=== PATIENT | male | born 1995 | race Caucasian/White ===

== ENCOUNTER 2022-01-11 08:22 | Outpatient (REF) | payer MEDICARE, MEDICAID, SELFPAY ==
[2022-01-11 08:48] LABS: MANUAL DIFF FLAG NO
[2022-01-11 09:07] LABS: Basophils Absolute Auto 0.1 X10*3/uL (0.0-0.2); Basophils Percent Auto 1.2 % (0-2); Eosinophils Absolute Auto 0.1 X10*3/uL (0.0-0.4); Eosinophils Percent Auto 1.4 % (0-4); Hematocrit 43.9 % (42.0-52.0); Hemoglobin 15.6 g/dl (14.0-18.0); Lymphocytes Absolute Auto 1.3 X10*3/uL (1.2-4.9); Lymphocytes Percent Auto 26.8 % (20-40); Mean Corpuscular HGB Conc 35.5 g/dl (31.0-36.0); Mean Corpuscular Hemoglobin 30.1 pg (27.0-33.0); Mean Corpuscular Volume 84.7 fL (80.0-98.0); Mean Platelet Volume 9.6 fL (9.4-12.4); Monocytes Absolute Auto 0.5 X10*3/uL (0.1-1.2); Monocytes Percent Auto 9.8 % (2-11); Neutrophils Percent Auto 60.8 % (45-73); Platelet Count 234 X10*3/uL (160-400); Red Blood Count 5.18 X10*6/uL (4.60-5.80); White Blood Count 4.9 X10*3/uL (4.8-10.8)
[2022-01-11 09:17] LABS: Appearance Urine CLEAR; Glucose Urine UA NEG (NEG); Leukocyte Esterase Urine NEG (NEG); Nitrite Urine NEG (NEG); Specific Gravity - Urine <= 1.005 (1.005-1.025); Urine Blood NEG (NEG); Urine Ketones NEG (NEG); Urine Protein NEG (NEG-TRACE)
[2022-01-11 09:19] LABS: Color Urine COLORLESS
[2022-01-11 09:38] LABS: Alanine Aminotransferase 16 U/L (0-40); Albumin Level 4.8 g/dL (3.5-5.0); Alkaline Phosphatase 64 U/L (39-117); Anion Gap 11 (12-20); Aspartate Amino Transferase 14 U/L (5-37); Bilirubin Total 0.9 mg/dL (0.0-1.0); Blood Urea Nitrogen 8 mg/dL (9-16); Carbon Dioxide 26 mmol/L (22-29); Chloride 107 mmol/L (96-108); Cholesterol 196 mg/dL; Estimated Glomerular Filt Rate > 60; Glucose Random 102 mg/dL (60-115); Sodium 140 mmol/L (135-145); Total Protein 7.5 g/dL (6.5-8.0)
[2022-01-11 09:52] LABS: TSH reflex Free T4 1.03 uIU/mL (0.32-4.0); Vitamin D 25-OH Total 32.8 ng/mL (>30)
== END 2022-01-11 08:23 | disposition home or self-care (01) ==
LOC: HO.LAB 08:22
PROVIDERS: PCP Internal Medicine; Visit Provider Internal Medicine
DX: Z00.00 Encounter for general adult medical examination without abnormal findings (principal); E55.9 Vitamin D deficiency, unspecified; R53.83 Other fatigue; Z83.49 Family history of other endocrine, nutritional and metabolic diseases
CPT/HCPCS: 36415; 80053; 81003; 82306; 82465; 84443; 85025

== ENCOUNTER 2022-04-08 11:09 | Outpatient (REF) | payer OTHER, SELFPAY ==
[2022-04-08 11:51] LABS: COVID-19 Test Positive (Negative)
== END 2022-04-08 11:10 | disposition home or self-care (01) ==
LOC: HO.LAB 11:09
PROVIDERS: Visit Provider Internal Medicine
DX: Z20.822 Contact with and (suspected) exposure to COVID-19 (principal)
CPT/HCPCS: 87635; C9803

== ENCOUNTER 2022-05-19 14:48 | Outpatient (REF) | payer OTHER, SELFPAY ==
--- NOTE | ~2022-05-19 | XR_ITS ---
EXAMINATION: XR SACROILIAC JOINTS CLINICAL INFORMATION: Sacrococcygeal disorders. COMPARISON: None TECHNIQUE: 3 views of the sacroiliac joints FINDINGS: Sacroiliac joints are symmetric. No significant sclerosis or discrete erosions. No displaced fractures. No significant soft tissue abnormality. XR/XR sacroiliac joint 1-2V IMPRESSION: Normal sacroiliac joints.
--- NOTE | ~2022-05-19 | XR_ITS ---
EXAMINATION: XR HIP, LEFT CLINICAL INFORMATION: Pain in the left hip. COMPARISON: None TECHNIQUE: Two views of the left hip. FINDINGS: No acute fracture or malalignment. Nonaggressive-appearing sclerotic lesions projecting over the left femoral neck, largest measuring 1.5 cm. No significant degenerative changes. Normal appearance of the soft tissues. XR/XR hip LT min 2V IMPRESSION: No acute fracture or subluxation. Nonaggressive-appearing sclerotic lesions in the proximal left femur are in favor to represent bone islands. Correlation with prior examinations would be helpful to ensure stability. Alternatively, further evaluation with a bone scan or an interval radiographic 6-12 months could be obtained if clinically deemed appropriate.
== END 2022-05-19 14:49 | disposition home or self-care (01) ==
LOC: HO.HMGCX 14:48
PROVIDERS: PCP Internal Medicine; Visit Provider Nurse Practitioner Family
DX: M25.552 Pain in left hip (principal); M53.3 Sacrococcygeal disorders, not elsewhere classified
CPT/HCPCS: 72200; 73502

== ENCOUNTER 2022-06-04 | Outpatient (REF) | payer OTHER, SELFPAY ==
--- NOTE | ~2022-06-04 | XR_ITS ---
EXAMINATION: XR KNEE, BILATERAL XR KNEE, RIGHT CLINICAL INFORMATION: Knee pain. COMPARISON: None TECHNIQUE: AP bilateral knee standing 1 view. Right knee 2 views. FINDINGS: AP BILATERAL KNEE STANDING: The medial and lateral compartment joint space both knees are maintained normal. No bony erosive changes, loose bodies or soft tissue swelling. Visualized distal femur, proximal tibia and fibula are unremarkable. RIGHT KNEE: Lateral and patellofemoral views reveal maintained normal joint space. No bony erosive changes. No loose body seen. No joint effusion. XR/XR knee standing BI IMPRESSION: Unremarkable AP bilateral knee exam standing. Unremarkable right knee exam.
--- NOTE | ~2022-06-04 | XR_ITS ---
EXAMINATION: XR KNEE, BILATERAL XR KNEE, RIGHT CLINICAL INFORMATION: Knee pain. COMPARISON: None TECHNIQUE: AP bilateral knee standing 1 view. Right knee 2 views. FINDINGS: AP BILATERAL KNEE STANDING: The medial and lateral compartment joint space both knees are maintained normal. No bony erosive changes, loose bodies or soft tissue swelling. Visualized distal femur, proximal tibia and fibula are unremarkable. RIGHT KNEE: Lateral and patellofemoral views reveal maintained normal joint space. No bony erosive changes. No loose body seen. No joint effusion. XR/XR knee RT 2V IMPRESSION: Unremarkable AP bilateral knee exam standing. Unremarkable right knee exam.
== END 2022-06-04 00:01 ==
LOC: HO.HOSX
PROVIDERS: Visit Provider Physician Assistant
DX: M25.561 Pain in right knee (principal); M12.20 Villonodular synovitis (pigmented), unspecified site; M25.552 Pain in left hip
CPT/HCPCS: 73560; 73565; 99202

== ENCOUNTER 2022-06-24 14:58 | Outpatient (REF) | payer OTHER, SELFPAY ==
--- NOTE | ~2022-06-24 | MR_ITS ---
EXAMINATION: MR KNEE WITHOUT CONTRAST, RIGHT CLINICAL INFORMATION: Pain, PVNS. COMPARISON: X-ray 06/04/2022. TECHNIQUE: MRI of the knee without contrast was performed using routine sequences on a high-field scanner. FINDINGS: MENISCI: Medial Meniscus: Intact. Lateral Meniscus: Intact. LIGAMENTS: Cruciate: Intact. Collateral: Intact. EXTENSOR MECHANISM: Intact. ARTICULAR CARTILAGE/BONE: No focal cartilage loss in 3 compartments. Marrow signal is within normal limits. No evidence of fracture. JOINT FLUID AND BURSAE: There is a soft tissue masslike focus posterior to the femur, adjacent to the medial gastrocnemius tendon. Measures 1.2 x 2.7 x 2.4 cm (AP, transverse, length). This focus is heterogeneous on T2, with mixed areas of bright T2, intermediate T1 signal, low on T1. Multiple additional foci with similar signal characteristics are seen along the posteromedial knee, posterior to the capsule, and tracking along the medial gastrocnemius muscle, could be located within a Valentin's cyst. For example series 5:3. Question subtle foci within the intercondylar region. Small joint fluid. MR/MR knee RT wo con IMPRESSION: 1. There is a 1.2 x 2.7 x 2.4 cm soft tissue mass posterior to the distal femur adjacent to the medial gastrocnemius tendon, with signal characteristics as detailed above. Multiple additional foci are seen along the posteromedial aspect of the knee/proximal calf, detailed above. 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 Differential considerations include PVNS, synovitis, neoplastic etiologies are not excluded. Recommend orthopedic consultation and management. Biopsy/soft tissue sampling can be obtained as clinically warranted. Ongoing clinical management and followup is recommended, with consideration for followup imaging for reassessment. 2. Menisci appear intact without discrete tear.
== END 2022-06-24 14:59 | disposition home or self-care (01) ==
LOC: HO.MRI 14:58
PROVIDERS: Visit Provider Physician Assistant
DX: M12.261 Villonodular synovitis (pigmented), right knee (principal); M25.561 Pain in right knee
CPT/HCPCS: 73721

== ENCOUNTER 2022-07-06 15:26 | Outpatient (REF) | payer OTHER, SELFPAY ==
--- NOTE | ~2022-07-06 | XR_ITS ---
EXAMINATION: XR KNEE, LEFT CLINICAL INFORMATION: Left knee pain COMPARISON: None TECHNIQUE: Four views of the left knee. FINDINGS: Bones and soft tissues are normal. No fracture or joint effusion. Alignment is anatomic. Joint spaces are well maintained. No abnormal soft tissue calcification. XR/XR knee LT 2V IMPRESSION: Normal left knee.
== END 2022-07-06 15:27 | disposition home or self-care (01) ==
LOC: HO.HOSX 15:26
PROVIDERS: Visit Provider Physician Assistant
DX: M25.561 Pain in right knee (principal); M25.552 Pain in left hip; M12.20 Villonodular synovitis (pigmented), unspecified site
CPT/HCPCS: 73560; 99212

== ENCOUNTER 2022-08-13 11:00 | Outpatient (REF) | payer OTHER, SELFPAY ==
--- NOTE | ~2022-08-13 | MR_ITS ---
EXAMINATION: MR HIP WITHOUT AND WITH CONTRAST, LEFT CLINICAL INFORMATION: Left hip pain. Intermittent. Difficulty with weightbearing. Disorder of bone. COMPARISON: Left hip radiographs dated 05/19/2022. TECHNIQUE: MRI of the left hip was performed before and after the intravenous administration of 5 mL Gadavist on a high-field scanner. FINDINGS: ACETABULAR LABRUM: No displaced several tear. ARTICULAR CARTILAGE/BONE: Low T1/low T2 foci within the femoral neck measuring 1.2 cm posteriorly and 0.3 cm anteriorly, corresponding to the prior radiographs and consistent with bone islands. No concerning lytic or blastic osseous lesion. No abnormal marrow enhancement. No stress reaction, fracture, or avascular necrosis. MUSCLES/TENDONS: Intact. JOINT FLUID/BURSA: Within normal limits. INTRAPELVIC STRUCTURES: Unremarkable. MR/MR hip LT wo/w con IMPRESSION: 1. No concerning lytic or blastic osseous lesion. Bone islands within the left femoral neck corresponding to the prior radiographs. 2. No displaced labral tear. 3. No stress reaction, fracture, or avascular necrosis.
== END 2022-08-13 11:01 | disposition home or self-care (01) ==
LOC: HO.MRI 11:00
PROVIDERS: Visit Provider Physician Assistant
DX: M89.9 Disorder of bone, unspecified (principal)
CPT/HCPCS: 73723; A9585

== ENCOUNTER → 2022-08-17 13:07 | Outpatient (BNVA) | payer OTHER, SELFPAY | PROVIDERS: PCP Internal Medicine; Visit Provider Physician Assistant | DX: M12.20 Villonodular synovitis (pigmented), unspecified site (principal) | CPT/HCPCS: 99212 ==

== ENCOUNTER → 2022-09-27 08:47 | Outpatient (BNVA) | payer OTHER, SELFPAY | PROVIDERS: PCP Internal Medicine; Visit Provider Anesthesiology | DX: M12.20 Villonodular synovitis (pigmented), unspecified site (principal); M70.62 Trochanteric bursitis, left hip; M76.32 Iliotibial band syndrome, left leg | CPT/HCPCS: 99202 ==

== ENCOUNTER 2022-11-01 15:00 | Outpatient (RCR) | payer OTHER, SELFPAY ==
--- NOTE | 2022-09-06 17:17 | MHC.PT.EP ---
[facility] [place] Office [place] Office [place] Office [address] [phone] F: [phone] F: [phone] F: [phone] F: [phone] Physical Therapy Plan of Care Date of Evaluation: Date of Surgery: Diagnosis: L hip pain, lesion of L femur Assessment: Patient is a 27 y.o. male who is referred to PT by Bambi Enrique PA-C with Dx of L hip pain with lesion of L femur with PMHx of pigmented villonodular synovitis (PVNS). Patient impairments include pain with prolonged WBing, weakness in hips and knees, impaired balance. Patient current functional limitations are getting on/off low surface, ambulating longer distances, stair use, showering (prolonged standing), rolling onto L hip while sleeping. Patient will benefit from skilled PT to address aforementioned impairments and functional limitations to meet established goals. Frequency and Duration: The patient will be seen 1-2x/week for 4 weeks Short Term Goals: 2 weeks Patient demonstrates consistency and independence with HEP to self manage symptoms. Patient reports 2/10 pain when rolling/lying on L hip with sleeping. 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 Patient presents with increased L hip glute med strength 4/5 to be able to perform sit/stand without difficulty and good eccentric control. Treatment Plan: Modalities to reduce pain, spasms and effusion. Manual therapy to restore motion and function. Therapeutic exercise to improve strength and flexibility. Neuromuscular re-education for posture and balance. Therapeutic activities to return to functional activities of daily living. Electronically signed by: Karolina Parrish, PT, DPT Please sign and return to therapist. Thank you for your referral.
--- NOTE | 2022-11-02 10:47 | MHC.PT.DC ---
[facility] [place] Office [place] Office [place] Office [address] Jose Simeon [address] [phone] F: [phone] F: [phone] F: [phone] F: [phone] Physical Therapy Discharge Report Diagnosis: L hip pain, lesion of L femur Date of Surgery: Date of Evaluation: 09/06/22 Date of Discharge: 11/01/22 Treatments to Date: 8 Cancellations to Date: No Shows to Date: Discharge Status: Achieved Goals Improved Function Independent with HEP Discharge Summary: Patient has met goals for L hip strength and presents with reduced pain and improved LEFI score from initial evaluation. 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 We discuss needing to continue with working on strength and endurance at home for long distance ambulation. He agreed to discharge at this time. Electronically signed by: Karolina Parrish, PT, DPT Please sign and return to therapist. Thank you for your referral.
== END 2022-11-02 10:48 | disposition home or self-care (01) ==
LOC: HO.PT 15:00
PROVIDERS: PCP Internal Medicine; Visit Provider Physician Assistant
DX: M89.9 Disorder of bone, unspecified (principal)
CPT/HCPCS: 97110; 97112; 97161; 97530

== ENCOUNTER 2023-01-07 09:33 | Outpatient (REF) | payer OTHER, SELFPAY ==
[2023-01-07 10:02] LABS: MANUAL DIFF FLAG NO
[2023-01-07 10:30] LABS: Basophils Absolute Auto 0.1 X10*3/uL (0.0-0.2); Basophils Percent Auto 1.4 % (0-2); Eosinophils Absolute Auto 0.1 X10*3/uL (0.0-0.4); Eosinophils Percent Auto 2.3 % (0-4); Hemoglobin 15.5 g/dl (14.0-18.0); Imm Gran Abs Auto 0.01 X10*3/uL (0.00-0.03); Imm Gran Pct Auto 0.2 % (0.0-0.4); Lymphocytes Absolute Auto 1.5 X10*3/uL (1.2-4.9); Lymphocytes Percent Auto 33.1 % (20-40); Mean Corpuscular HGB Conc 35.2 g/dl (31.0-36.0); Mean Corpuscular Hemoglobin 30.7 pg (27.0-33.0); Mean Corpuscular Volume 87.1 fL (80.0-98.0); Mean Platelet Volume 9.6 fL (9.4-12.4); Monocytes Absolute Auto 0.4 X10*3/uL (0.1-1.2); Neutrophils Absolute Auto 2.3 x10*3/uL (2.0-8.3); Platelet Count 223 X10*3/uL (160-400); Red Blood Count 5.05 X10*6/uL (4.60-5.80); Red Cell Distribution Width 11.8 % (11.0-16.0); White Blood Count 4.4 X10*3/uL (4.8-10.8)
[2023-01-07 11:08] LABS: Alanine Aminotransferase 14 U/L (0-40); Alkaline Phosphatase 63 U/L (39-117); Anion Gap 10 (12-20); Aspartate Amino Transferase 19 U/L (5-37); Bilirubin Total 1.1 mg/dL (0.0-1.0); Blood Urea Nitrogen 10 mg/dL (9-16); Calcium 9.9 mg/dL (8.4-10.2); Carbon Dioxide 28 mmol/L (22-29); Chloride 107 mmol/L (96-108); Cholesterol 200 mg/dL; Estimated Glomerular Filt Rate > 60; Glucose Random 92 mg/dL (60-115); Potassium 4.3 mmol/L (3.3-5.1); Sodium 141 mmol/L (135-145); Total Protein 7.2 g/dL (6.5-8.0)
[2023-01-07 11:10] LABS: Appearance Urine Clear; Color Urine Yellow; Glucose Urine UA Negative (Negative); Leukocyte Esterase Urine Negative (Negative); Nitrite Urine Negative (Negative); Urine Blood Negative (Negative); Urine Ketones Negative (Negative); Urine Protein Negative (Neg-Trace)
[2023-01-07 11:14] LABS: Vitamin D 25-OH Total 37.2 ng/mL (>30)
== END 2023-01-07 09:34 | disposition home or self-care (01) ==
LOC: HO.LAB 09:33
PROVIDERS: PCP Internal Medicine; Visit Provider Internal Medicine
DX: Z00.00 Encounter for general adult medical examination without abnormal findings (principal); M12.20 Villonodular synovitis (pigmented), unspecified site; R63.6 Underweight; R30.0 Dysuria; E55.9 Vitamin D deficiency, unspecified; F94.0 Selective mutism; E78.00 Pure hypercholesterolemia, unspecified
CPT/HCPCS: 36415; 80053; 81003; 82306; 82465; 84443; 85025

== ENCOUNTER 2023-04-25 10:53 | Outpatient (AMB) | payer OTHER, SELFPAY ==
--- NOTE | 2023-04-25 10:55 | MHC.OFFWIV ---
Intake Vital Signs 04/25/23 10:56 Weight 103 lb BP 100/60 Blood Pressure Location Rt brachial Position Sitting Pulse 108 H Pulse Source Pulse Oximeter Temp 97.9 F Temp Source Temporal Artery Scan Pulse Oximetry (%) 99 Oxygen Delivery Method Room Air Intake Visit Reasons: EP ?Mole on lower AB/concerned Intake Note: Patient here for mole on lower abdomen, he states it seems like it has changed in the past week and is concerned. mola is raised and scally. Patient Tobacco Use Status: Never used Tobacco Allergies No Known Allergies Allergy (Verified 04/25/23 10:57) Do you need a note to return to daycare/school/sports/work: No HPI EP ?Mole on lower AB/concerned HPI Details 28-year-old male presents to the office for a sick visit. Patient cannot recall for how long he has had the mold. It is in the suprapubic area and over the past month had grown in size. No bleeding from the lesion. 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 Synovial cyst of right knee Surgical History H/O right knee surgery Family History Mother High cholesterol Father High blood pressure Other Mental health problem Social History Housing: Condominium Alcohol intake: never Patient Tobacco Use Status: Never used Tobacco e-Cigarette/Vaping Use: Never Used Second Hand Smoke Exposure: No service: No Current occupational status: disabled Cognitive needs: No Hearing needs: No Vision needs: Yes Physical Exam Vital Signs: Last Vital Signs Temp 97.9 F 04/25/23 10:56 Pulse 108 H 04/25/23 10:56 BP 100/60 04/25/23 10:56 Pulse Ox 99 04/25/23 10:56 Oxygen Delivery Method Room Air 04/25/23 10:56 Skin Other: Suprapubic area, blackish nevus 2 centimetres in diameter, irregular border. Assessment & Plan Assessment & Plan (1) Nevus: Code(s): D22.9 - Melanocytic nevi, unspecified Plan: The lesion warrants a biopsy. A message has been sent to the PCP if they would order a dermatology consult. Pt was informed of the same. Coding Level of Care Code Est Pt Level 3 (07193) Diagnoses Nevus D22.9
[2023-04-25 10:56] VITALS: BP 100/60; PULSE 108; TEMP 36.6; O2SAT 99
== END 2023-04-25 12:03 | disposition home or self-care (01) ==
PROVIDERS: PCP Internal Medicine; Visit Provider Internal Medicine
DX: D22.9 Melanocytic nevi, unspecified (principal)
CPT/HCPCS: 99213

== ENCOUNTER 2023-06-02 16:03 | Outpatient (AMB) | payer OTHER, SELFPAY ==
[2023-06-02 16:23] VITALS: BP 100/66; PULSE 86; O2SAT 99; BMI 17.3
--- NOTE | 2023-06-02 16:23 | MHC.PC.OV ---
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: No Allergies No Known Allergies Allergy (Verified 06/02/23 16:38) Medication List - Last Reconciled 06/02/23 by CLARISSA Lloyd omeprazole 20 mg PO DAILY Tobacco use date assessed: 06/02/23 Dental Screening Dental Screen Date: 06/02/23 Did you have a dental visit in the last 12 months?: Yes Did you have a dental problem in the last 6 months where you did not have access to dental care?: No Was dental information given to patient?: Patient has dentist HPI discuss acid reflux, problem swallowing food HPI Details Patient is a 28-year-old male who presents today for the same day visit due to acid reflux for long time now. Patient of Dr. Willett. Patient reports taking omeprazole for 14 days and he has stop taking that couple days ago, reports mild improvement in acid reflux although still with difficulty swallowing hard foods. He reports difficulty swallowing hard foods for the past couple months. No problems swallowing liquids. Denies nausea, vomiting, abdominal pain, diarrhea/constipation. Blood work couple months ago normal including thyroid. 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 How often do you have a drink containing alcohol?: Never 3. How often do you have six or more drinks on one occasion?: Never Total Score: 0 Score Reviewed/Action Taken: No YAHIR-7 AMB Questionnaire YAHIR-7 Date YAHIR - 7 assessed: 01/07/23 Source: Developed by Drs. Juanito Mederos, Dania Anglin, Josias Melara and colleagues, with an educational veronica from [employer]. Review of Systems Const Denies body aches, Denies chills, Denies fever(s) and Denies headache(s) ENT Reports dysphagia, Denies dizziness, Denies otalgia, Denies headache(s), Denies nasal discharge, Denies sinus pain and Denies sore throat Card Denies chest pain, Denies edema, Denies lightheadedness and Denies dyspnea Resp Denies cough, Denies dyspnea and Denies wheezing GI Denies abdominal pain, Denies constipation, Reports dysphagia, Reports heartburn, Denies diarrhea, Denies nausea and Denies vomiting Denies dysuria Musc Denies myalgias Skin/Breast Denies rash Neuro Denies dizziness and Denies headache(s) Aller/Immun Denies wheezing Physical exam (Primary Care) Vital Signs: Last Vital Signs Pulse 86 06/02/23 16:23 BP 100/66 06/02/23 16:23 Pulse Ox 99 06/02/23 16:23 Oxygen Delivery Method Room Air 06/02/23 16:23 BMI result Body Mass Index 17.3 Tobacco/Smoking Status: Tobacco use Status Tobacco use date assessed 06/02/23 06/02/23 16:23 Patient Tobacco Use Status Never used Tobacco 06/02/23 16:23 e-Cigarette/Vaping Use Never Used 06/02/23 16:23 Thrive Assessment: Date of Thrive Assessment Date Thrive assessed 01/07/23 06/02/23 16:23 Const General: cooperative and no acute distress Orientation/consciousness: patient oriented x3 HENMT Head: Yes normocephalic and Yes atraumatic Mouth: oropharynx normal and moist mucous membranes Throat: Yes posterior oropharynx normal Eyes General: appearance normal, both eyes and all related structures Neck Neck: Yes normal visual inspection, Yes full ROM and Yes no lymphadenopathy Thyroid: Thyroid normal Resp Effort & Inspection: normal respiratory effort and able to speak in complete sentences Auscultation: clear to auscultation bilaterally, no crackles, no rales, no rhonchi and no wheezes Cardio Rate: regular rate Rhythm: regular rhythm Heart sounds: S1 normal heart sound present and S2 normal heart sound present GI Palpation (GI): Soft to palpation, not firm, nontender, no guarding, not rigid and no hepatosplenomegaly Auscultation: normal bowel sounds Skin General skin exam: no rashes or lesions noted Neuro General: patient oriented x3 Gait exam (Neuro): Normal gait present Extrem General: Yes full ROM and No edema Assessment and Plan Assessment & Plan (1) Difficulty swallowing: Code(s): R13.10 - Dysphagia, unspecified Plan: Physical exam with no acute findings Upper GI study ordered (2) GERD (gastroesophageal reflux disease): Code(s): K21.9 - Gastro-esophageal reflux disease without esophagitis Plan: Restart omeprazole 20 mg daily for 4 weeks Avoid GERD trigger foods Do not lay down 2-3 hours after evening meal Follow-up in 1 month Patient agreed with the plan Orders: Orders FL upper GI w Ba Swallow Today K21.9 - Gastro-esophageal reflux disease without esophagitis, R13.10 - Dysphagia, unspecified Medications: New omeprazole 20 mg PO DAILY 30 caps 0RF K21.9 - Gastro-esophageal reflux disease without esophagitis Coding Level of Care Code Est Pt Level 3 (58841) Diagnoses Difficulty swallowing R13.10 GERD (gastroesophageal reflux disease) K21.9
== END 2023-06-02 16:51 | disposition home or self-care (01) ==
PROVIDERS: PCP Internal Medicine; Visit Provider Nurse Practitioner Family
DX: R13.10 Dysphagia, unspecified (principal); K21.9 Gastro-esophageal reflux disease without esophagitis
CPT/HCPCS: 99213

== ENCOUNTER 2023-07-04 14:18 | Outpatient (AMB) | payer OTHER, SELFPAY ==
[2023-07-04 14:24] VITALS: BP 130/78; PULSE 60; BMI 17.8
--- NOTE | 2023-07-04 14:24 | MHC.PC.OV ---
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: Present Allergies No Known Allergies Allergy (Verified 07/04/23 18:14) Medication List - Last Reconciled 07/04/23 by Wolf Willett MD omeprazole 20 mg PO DAILY Tobacco use date assessed: 06/02/23 Dental Screening Dental Screen Date: 07/04/23 Did you have a dental visit in the last 12 months?: Yes Did you have a dental problem in the last 6 months where you did not have access to dental care?: No Was dental information given to patient?: Patient has dentist HPI F/u on GERD HPI Details Patient comes in today for his follow up visit Relates that he started having some difficulty swallowing his food when he eats a few months ago; has had no trouble with liquids Was seen by SUPERVISOR BODY ASSEMBLY last month for this and was he started back on Omeprazole 20 mg QD, which he states was helping with his symptoms until he ran out of his Rx States that his dysphagia has improved a lot on Rx but still has not cleared up completely He was referred for a barium swallow for further evaluation and he is scheduled to have this done next month on 08/18/2023 States that he feels okay otherwise Denies any headaches or dizziness Denies any sore throat Denies any chest pains, no SOB No nausea/vomiting, no abdominal pain No change in bowel habits noted PFSH Medical History Synovial cyst of right knee 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 1. Little interest or pleasure in doing things: not at all 2. Feeling down, depressed, or hopeless: not at all 3. Trouble falling or staying asleep, or sleeping too much: not at all 4. Feeling tired or having little energy: not at all 5. Poor appetite or overeating: not at all 6. Feeling bad about yourself - or that you are a failure or have let yourself or your family down: not at all 7. Trouble concentrating on things, such as reading the newspaper or watching television: not at all 8. Moving or speaking so slowly that other people could have noticed. Or the opposite - being so fidgety or restless that you have been moving around a lot more than usual: not at all 9. Thoughts that you would be better off or of hurting yourself in some way: not at all Total score: 0 Depression Screening Interpretation: Negative Depression Screening Done: Yes 94816 - PHQ-9 Billing: Yes Source: Developed by Drs. Juanito Mederos, Dania Anglin, Josias Melara and colleagues, with an educational veronica from [employer]. Thrive Questionnaire Date Thrive assessed: 01/07/23 Currently or been in a relationship where the following occur: no concerns reported AUDIT C Alcohol Use Questionnaire (AUDIT-C) 1. How often do you have a drink containing alcohol?: Never 3. How often do you have six or more drinks on one occasion?: Never Total Score: 0 Score Reviewed/Action Taken: Yes YAHIR-7 AMB Questionnaire YAHIR-7 Date YAHIR - 7 assessed: 01/07/23 Source: Developed by Drs. Juanito Mederos, Dania Anglin, Josias Melara and colleagues, with an educational veronica from [employer]. Review of Systems Const Denies fatigue, Denies fever(s) and Denies headache(s) ENT Reports dysphagia (only to solids), Denies dizziness, Denies headache(s), Denies odynophagia and Denies sore throat Card Denies chest pain, Denies palpitations and Denies dyspnea Resp Denies cough and Denies dyspnea GI Denies abdominal pain, Denies constipation, Reports dysphagia (only to solids), Reports heartburn (occasional), Denies diarrhea, Denies nausea, Denies odynophagia and Denies vomiting Denies dysuria and Denies urinary frequency Musc Denies back pain Skin/Breast Denies rash Neuro Denies dizziness and Denies headache(s) Psych Reports anxiety Endo Denies fatigue and Denies palpitations Physical exam (Primary Care) Vital Signs: Last Vital Signs Pulse 60 07/04/23 14:24 BP 130/78 07/04/23 14:24 Oxygen Delivery Method Room Air 07/04/23 14:24 BMI result Body Mass Index 17.8 Tobacco/Smoking Status: Tobacco use Status Tobacco use date assessed 06/02/23 07/04/23 14:27 Patient Tobacco Use Status Never used Tobacco 07/04/23 14:27 e-Cigarette/Vaping Use Never Used 07/04/23 14:27 PHQ-9: PHQ-9 Score PHQ-9: Total score 0 07/04/23 14:46 Depression Screening Interpretation: Negative Thrive Assessment: Date of Thrive Assessment Date Thrive assessed 01/07/23 07/04/23 14:27 Currently or been in a relationship where the following occur: no concerns reported Const General: no acute distress and alert HENMT Mouth: Normal oral and palatal mucosa present Throat: Yes posterior oropharynx normal and Yes tonsils normal Neck Neck: Yes no lymphadenopathy and Yes supple Resp Auscultation: clear to auscultation bilaterally, no rales and no wheezes Cardio Rate: regular rate Rhythm: regular rhythm Heart sounds: no murmurs GI Palpation (GI): Soft to palpation and nontender Auscultation: normal bowel sounds Skin Rashes: no rashes Extrem General: Yes no clubbing, cyanosis or edema Assessment and Plan Assessment & Plan (1) Dysphagia: Code(s): R13.10 - Dysphagia, unspecified Qualifiers: Dysphagia type: unspecified Qualified Code(s): R13.10 - Dysphagia, unspecified Plan: Likely related to his GERD Patient states that his symptoms have improved somewhat with Omeprazole - to continue on Omeprazole 20 mg QD (Rx refilled) Dietary restrictions reinforced He is scheduled to have a barium swallow done next month on 08/18/2023 for further evaluation Plan Follow up in 2 months (after his barium swallow is done) Medications: Refilled omeprazole 20 mg PO DAILY 30 caps 2RF K21.9 - Gastro-esophageal reflux disease without esophagitis Coding Level of Care Code Est Pt Level 3 (09144) Diagnoses Dysphagia, unspecified type R13.10 Dysphagia type: unspecified
== END 2023-07-04 14:48 | disposition home or self-care (01) ==
PROVIDERS: PCP Internal Medicine; Visit Provider Internal Medicine
DX: R13.10 Dysphagia, unspecified (principal)
CPT/HCPCS: 99213

== ENCOUNTER 2023-08-18 09:13 | Outpatient (REF) | payer OTHER, SELFPAY ==
--- NOTE | ~2023-08-18 | FL_ITS ---
EXAMINATION: XR FLUOROSCOPY UPPER GI WITH AIR CLINICAL INFORMATION: Dysphagia, epigastric pain reflux COMPARISON: None TECHNIQUE: Fluoroscopic air contrast upper GI examination was performed utilizing standard techniques with thin and thick barium and effervescent granules. Numerous spot images were obtained. FINDINGS: Lateral cine images of the oropharynx and hypopharynx demonstrate normal swallow mechanism with normal epiglottic inversion and soft palate elevation. No tracheal penetration, glottic or subglottic aspiration identified. No nasopharyngeal reflux present. Hypopharyngeal structures appear normal without evidence of mass or diverticulum. There was no significant cricopharyngeal achalasia. Dual and single contrast images of the esophagus demonstrate normal caliber, contour, and mucosal pattern. Some granule artifact in the esophagus clears eventually. No evidence of stricture, mass, or ulcerations identified. Esophageal peristalsis was normal. A small type I hiatal hernia is present. Gastroesophageal reflux is seen up to the thoracic inlet. Dual contrast and single contrast images of the stomach demonstrated normal contour without evidence of mass, or ulceration. Gastric mucosal folds and mucosal markings appear normal.. Contrast freely passed into the gastric antrum and duodenal bulb without delay. Single and air-contrast images of the duodenal bulb demonstrate no abnormality. The duodenal sweep has a normal appearance, course, and mucosal fold appearance. The imaged proximal jejunum has a normal fold pattern and caliber. FLUOROSCOPY TIME: 3 minutes 5 seconds Number of Spot Images: 11 Number of Cine: 11 DOSE AREA PRODUCT: 1035 uGy-m2 (microgray-meter squared) FL/FL upper GI w Ba Swallow IMPRESSION: 1. Small type I hiatal hernia 2. Significant gastroesophageal reflux 3. Essentially normal stomach, duodenal bulb and sweep. This procedure was performed by Johan Covington PA-C, and supervised by Dr. Hogue
== END 2023-08-18 09:14 | disposition home or self-care (01) ==
LOC: HO.XRAY 09:13
PROVIDERS: PCP Internal Medicine; Visit Provider Nurse Practitioner Family
DX: R13.10 Dysphagia, unspecified (principal); K21.9 Gastro-esophageal reflux disease without esophagitis
CPT/HCPCS: 74240

== ENCOUNTER → 2023-08-18 09:15 | Outpatient (BNV) | payer OTHER, SELFPAY | PROVIDERS: PCP Internal Medicine; Visit Provider Radiology Diagnostic Radiology | DX: R13.10 Dysphagia, unspecified (principal) | CPT/HCPCS: 74246 ==

== ENCOUNTER 2023-09-12 13:03 | Outpatient (AMB) | payer OTHER, SELFPAY ==
[2023-09-12 13:04] VITALS: BP 100/70; PULSE 62; O2SAT 99; BMI 17.6
--- NOTE | 2023-09-12 13:04 | MHC.PC.OV ---
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 Required: No Accompanied by: Self / Same As Patient Allergies No Known Allergies Allergy (Verified 09/12/23 13:39) Medication List - Last Reconciled 09/12/23 by Wolf Willett MD omeprazole 20 mg PO DAILY Tobacco use date assessed: 09/12/23 Dental Screening Dental Screen Date: 09/12/23 Did you have a dental visit in the last 12 months?: Yes Did you have a dental problem in the last 6 months where you did not have access to dental care?: No Was dental information given to patient?: Patient has dentist HPI dysphagia - to discuss findings of barium swallow HPI Details Patient comes in today for his follow up visit States that he is still experiencing some difficulty swallowing that involves mostly solid foods Is also still experiencing recurrent heartburns although he states that his Omeprazole Rx has helped somewhat with his symptoms when he was first started on it a few months ago Had an upper GI series done about 3 weeks ago and would like to know how his test came out He denies any headaches or dizziness Denies any chest pains, no SOB No nausea/vomiting, no abdominal pain No change in bowel habits noted [facility] Medical History Synovial cyst of right knee 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 1. Little interest or pleasure in doing things: not at all 2. Feeling down, depressed, or hopeless: not at all 3. Trouble falling or staying asleep, or sleeping too much: not at all 4. Feeling tired or having little energy: not at all 5. Poor appetite or overeating: not at all 6. Feeling bad about yourself - or that you are a failure or have let yourself or your family down: not at all 7. Trouble concentrating on things, such as reading the newspaper or watching television: not at all 8. Moving or speaking so slowly that other people could have noticed. Or the opposite - being so fidgety or restless that you have been moving around a lot more than usual: not at all 9. Thoughts that you would be better off or of hurting yourself in some way: not at all Total score: 0 Depression Screening Interpretation: Negative Depression Screening Done: Yes 66840 - PHQ-9 Billing: Yes Source: Developed by Drs. Juanito Mederos, Dania Anglin, Josias Melara and colleagues, with an educational veronica from [employer]. Thrive Questionnaire Date Thrive assessed: 09/12/23 I am a: Patient What is your living situation today?: I have a steady place to live Within the past 12 months, did the food you bought not last and you didn't have the money to get more?: Never true Within the past 12 months, did you worry whether your food would run out before you got money to buy more?: Never true Do you have trouble paying for medicines?: No Do you have trouble getting transportation to medical appointments?: No Do you have trouble paying your heating and electricity bill?: No Do you have trouble taking care of your child, family member or friend?: No Do you have trouble with day-to-day activities such as bathing, preparing meals, shopping, managing finances, etc.?: No Are you currently unemployed and looking for a job?: No Are you interested in more education?: No Please select the resources that you would like help with: None Currently or been in a relationship where the following occur: no concerns reported AUDIT C Alcohol Use Questionnaire (AUDIT-C) 1. How often do you have a drink containing alcohol?: Never 3. How often do you have six or more drinks on one occasion?: Never Total Score: 0 Score Reviewed/Action Taken: Yes YAHIR-7 AMB Questionnaire YAHIR-7 Date YAHIR - 7 assessed: 09/12/23 Feeling nervous, anxious, or on edge: 0 = Not at all Not being able to stop or control worryin = Not at all Worrying too much about different things: 0 = Not at all Trouble relaxin = Not at all Being so restless that it is hard to sit still: 0 = Not at all Becoming easily annoyed or irritable: 0 = Not at all Feeling afraid as if something awful might happen: 0 = Not at all Total YAHIR-7 score (0-4 normal; 5-9 mild; 10-14 moderate; 15-21 severe): 0 Source: Developed by Drs. Juanito Mederos, Dania Anglin, Josias Melara and colleagues, with an educational veronica from [employer]. Review of Systems Const Denies chills, Denies fatigue, Denies fever(s) and Denies headache(s) ENT Reports dysphagia (only to solids), Denies dizziness, Denies otalgia, Denies headache(s), Denies neck pain, Denies odynophagia and Denies sore throat Card Denies chest pain, Denies palpitations and Denies dyspnea Resp Denies cough and Denies dyspnea GI Denies abdominal pain, Denies constipation, Reports dysphagia (only to solids), Reports heartburn (occasional), Denies diarrhea, Denies nausea, Denies odynophagia and Denies vomiting Denies dysuria and Denies urinary frequency Musc Denies back pain and Denies neck pain Skin/Breast Denies rash Neuro Denies dizziness and Denies headache(s) Psych Reports anxiety Endo Denies fatigue and Denies palpitations Physical exam (Primary Care) Vital Signs: Last Vital Signs Pulse 62 09/12/23 13:04 BP 100/70 09/12/23 13:04 Pulse Ox 99 09/12/23 13:04 Oxygen Delivery Method Room Air 09/12/23 13:04 BMI result Body Mass Index 17.6 Tobacco/Smoking Status: Tobacco use Status Tobacco use date assessed 09/12/23 09/12/23 13:11 Patient Tobacco Use Status Never used Tobacco 09/12/23 13:11 e-Cigarette/Vaping Use Never Used 09/12/23 13:11 PHQ-9: PHQ-9 Score PHQ-9: Total score 0 09/12/23 13:11 Depression Screening Interpretation: Negative Thrive Assessment: Date of Thrive Assessment Date Thrive assessed 09/12/23 09/12/23 13:11 Currently or been in a relationship where the following occur: no concerns reported Const General: no acute distress and alert HENMT Ears: TM's normal bilaterally and EAC's normal Throat: Yes posterior oropharynx normal and Yes tonsils normal Neck Neck: Yes no lymphadenopathy and Yes supple Resp Auscultation: clear to auscultation bilaterally, no rales and no wheezes Cardio Rate: regular rate Rhythm: regular rhythm Heart sounds: no murmurs GI Palpation (GI): Soft to palpation and nontender Auscultation: normal bowel sounds Skin Rashes: no rashes Extrem General: Yes no clubbing, cyanosis or edema Assessment and Plan Assessment & Plan (1) Dysphagia: Code(s): R13.10 - Dysphagia, unspecified Qualifiers: Dysphagia type: unspecified Qualified Code(s): R13.10 - Dysphagia, unspecified Plan: Is most likely related to his GERD Patient states that his symptoms have improved only partially with Omeprazole recently - will increase his Omeprazole to 20 mg 2 capsules QD (Rx refilled) Dietary restrictions reinforced Barium swallow done last month on 08/18/2023 revealed (+) type 1 sliding hiatal hernia with significant GERD up to the level of the thoracic inlet Due to the persistence of his symptoms despite PPI therapy and the findings on his recent upper GI series, will refer him to GI for further evaluation and management (2) PVNS (pigmented villonodular synovitis): Code(s): M12.20 - Villonodular synovitis (pigmented), unspecified site Plan: S/P knee arthroplasty at [facility] back in 2015 Follow up with orthopedics as scheduled - he is now also seeing a specialist for his knee at [facility] (3) 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 Plan: Follow up with psychiatry as scheduled Plan To return as scheduled in December 2023 for his next annual physical examination Orders: Referrals Gastroenterology Referral K21.9 - Gastro-esophageal reflux disease without esophagitis, R13.10 - Dysphagia, unspecified Medications: Changed From omeprazole 20 mg PO DAILY 30 caps 2RF K21.9 - Gastro-esophageal reflux disease without esophagitis To omeprazole 40 mg (2 x 20 mg) PO DAILY 30 days 60 caps 3RF K21.9 - Gastro-esophageal reflux disease without esophagitis Coding Level of Care Code Est Pt Level 3 (68370) Diagnoses Dysphagia, unspecified type R13.10 Dysphagia type: unspecified PVNS (pigmented villonodular synovitis) M12.20 Selective mutism F94.0
== END 2023-09-12 13:50 | disposition home or self-care (01) ==
PROVIDERS: PCP Internal Medicine; Visit Provider Internal Medicine
DX: R13.10 Dysphagia, unspecified (principal); M12.20 Villonodular synovitis (pigmented), unspecified site; F94.0 Selective mutism
CPT/HCPCS: 99213

== ENCOUNTER 2023-11-21 09:56 | Outpatient (AMB) | payer OTHER, SELFPAY ==
--- NOTE | 2023-11-21 09:58 | MHC.OFFVIS ---
Intake Vital Signs 11/21/23 09:59 Height 5 ft 5 in Weight 110 lb 10.753 oz BMI 18.4 BP 105/62 Blood Pressure Location Rt brachial Position Sitting Pulse 69 Intake Visit Reasons: Dysphagia and GERD Intake Note: Mack presents in office today as a new patient for dysphagia and GERD. CC: Patient c/o chocking with solid foods for several months and acid reflux for years. Denies other GI symptoms today. 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 Surgical History H/O right knee surgery Family History Mother High cholesterol Father High blood pressure Other Mental health problem Social History Housing: Condominium Alcohol intake: never Patient Tobacco Use Status: Never used Tobacco e-Cigarette/Vaping Use: Never Used Second Hand Smoke Exposure: No service: No Current occupational status: disabled Cognitive needs: No Hearing needs: No Vision needs: Yes Review of Systems Const All systems reviewed & are unremarkable except as noted in HPI and below ENT Reports dysphagia Card Denies chest pain and Denies dyspnea Resp Denies dyspnea GI Denies abdominal pain, Reports dysphagia, Reports heartburn, Denies nausea and Denies vomiting Physical Exam Vital Signs: Last Vital Signs Pulse 69 11/21/23 09:59 BP 105/62 11/21/23 09:59 BMI result Body Mass Index 18.4 Const General: cooperative and comfortable Orientation/consciousness: patient oriented x3 Limitations: no limitations Eyes Sclerae: sclerae normal Resp Effort & Inspection: normal respiratory effort and able to speak in complete sentences Auscultation: clear to auscultation bilaterally, no rales, no rhonchi and no wheezes Cardio Rate: regular rate Rhythm: regular rhythm Heart sounds: S1 normal heart sound present and S2 normal heart sound present GI Palpation (GI): Soft to palpation and nontender Auscultation: normal bowel sounds Skin General skin exam: no rashes or lesions noted Neuro General: patient oriented x3 Extrem General: Yes full ROM Psych Speech and movement: Clear speech present Affect: Anxious affect present Attitude: cooperative Thought process: Normal thought process present Thought content: Normal thought content present Results Reviewed Results Reviewed: 08/18/23- FL/FL upper GI w Ba Swallow IMPRESSION: 1. Small type I hiatal hernia 2. Significant gastroesophageal reflux 3. Essentially normal stomach, duodenal bulb and sweep. Assessment & Plan Assessment & Plan (1) Dysphagia: Comment: Dysphagia versus globus-anxiety Code(s): R13.10 - Dysphagia, unspecified Qualifiers: Dysphagia type: unspecified Qualified Code(s): R13.10 - Dysphagia, unspecified Plan: Reviewed barium swallow (2) GERD (gastroesophageal reflux disease): Code(s): K21.9 - Gastro-esophageal reflux disease without esophagitis Plan: Reflux precautions Omit culprits H pylori UBT Plan Reflux precautions d/c omeprazole x2 wks carafate in the interim- HP UBT- if pos tx if neg reassess consider EGD- Orders: Orders H Pylori Breath Test 2 Weeks A04.8 - Other specified bacterial intestinal infections Medications: New sucralfate 1 g (10 mL) PO QIDACHS 420 mL 0RF 4 weeks Patient Instructions: Reflux precautions reviewed Reviewed barium swallow Continue to avoid culprits Discontinue omeprazole for 2 weeks H pylori breath test scheduled-must arrive NPO x1 If H pylori positive will treat with course of antibiotic If H pylori negative switch PPI Encouraged to call questions or concerns Coding Level of Care Code New Pt Level 3 (68055) Diagnoses Dysphagia, unspecified type R13.10 Dysphagia type: unspecified GERD (gastroesophageal reflux disease) K21.9 Time Spent (min) 30
[2023-11-21 09:59] VITALS: BP 105/62; PULSE 69; BMI 18.4
== END 2023-11-21 10:32 | disposition home or self-care (01) ==
PROVIDERS: PCP Internal Medicine; Visit Provider Physician Assistant
DX: R13.10 Dysphagia, unspecified (principal); K21.9 Gastro-esophageal reflux disease without esophagitis
CPT/HCPCS: 99203

== ENCOUNTER → 2023-11-21 09:56 | Outpatient (BNVA) | payer OTHER, SELFPAY | PROVIDERS: PCP Internal Medicine; Visit Provider Physician Assistant | DX: K21.9 Gastro-esophageal reflux disease without esophagitis (principal); R13.10 Dysphagia, unspecified | CPT/HCPCS: 99202 ==

== ENCOUNTER 2023-12-05 09:41 | Outpatient (REF) | payer OTHER, SELFPAY ==
[2023-12-08 10:06] LABS: H Pylori Breath Test Negative (Negative)
== END 2023-12-05 09:42 | disposition home or self-care (01) ==
LOC: HO.LNP 09:41
PROVIDERS: PCP Internal Medicine; Visit Provider Physician Assistant
DX: A04.8 Other specified bacterial intestinal infections (principal); K21.9 Gastro-esophageal reflux disease without esophagitis
CPT/HCPCS: 83013; 99211

== ENCOUNTER 2023-12-05 09:41 | Outpatient (AMB) | payer OTHER, SELFPAY ==
--- NOTE | 2023-12-05 09:56 | AM.OFFVISNUR ---
Intake Intake Visit Reasons: H pylori Allergies No Known Allergies Allergy (Verified 11/21/23 10:02) Nursing Note Patient presents for collection of H Pylori breath test. Patient has been fasting for 1 hour (nothing to eat, drink, no chewing gum or smoking) has not taken any antacid medication for at least 2 weeks and has no allergies to artificial sweeteners.?? Coding Level of Care Code Established Pt Est Pt Level 1 (78765) Patient Type Established Medical Decision Making Straight Forward Diagnoses GERD (gastroesophageal reflux disease) K21.9 Assessment & Plan Assessment & Plan (1) GERD (gastroesophageal reflux disease): Code(s): K21.9 - Gastro-esophageal reflux disease without esophagitis Category: Medical Plan Patient presents for collection of H Pylori breath test. Patient has been fasting for 1 hour (nothing to eat, drink, no chewing gum or smoking) has not taken any antacid medication for at least 2 weeks and has no allergies to artificial sweeteners.???This test checks for an overgrowth of bacteria in your stomach. We all have bacteria but some may have more than others. It is treatable. if the test comes back negative there is nothing else to do. If the test result is positive we will treat you with 2 antibiotics and a medication to decrease the acid in your stomach (PPI) for 2 weeks. Two weeks after you have completed the treatment we will retest you to make sure the overgrowth has resolved. Patient Instructions: Process for specimen collection and reason for testing was explained to the patient. Specimen collection. Patient instructed to take a deep breath and then exhale into the blue bag, filling it up as much as possible. Patient instructed to drink a mixture of water and the artificial sweetener with a straw. A 15 minute wait period was observed. Patient instructed to take a deep breath and then exhale into the pink bag, filling it up as much as possible.??
== END 2023-12-05 09:58 | disposition home or self-care (01) ==
PROVIDERS: PCP Internal Medicine; Visit Provider Physician Assistant
DX: K21.9 Gastro-esophageal reflux disease without esophagitis (principal)

== ENCOUNTER 2024-01-10 08:45 | Outpatient (AMB) | payer OTHER, SELFPAY ==
[2024-01-10 08:49] VITALS: BP 102/66; PULSE 75; O2SAT 98; BMI 17.8
--- NOTE | 2024-01-10 08:49 | A.OFFPC_ITS ---
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: Not Required per policy Accompanied by: Self / Same As Patient Allergies No Known Allergies Allergy (Verified 01/10/24 09:19) Medication List - Last Reconciled 01/10/24 by Wolf Willett MD omeprazole 40 mg (2 x 20 mg) PO DAILY 30 days sucralfate 1 g (10 mL) PO QIDACHS 4 weeks Tobacco use date assessed: 09/12/23 Dental Screening Dental Screen Date: 09/12/23 HPI pe HPI Details Patient comes in today for his annual physical examination States that he currently feels okay but continues to experience difficulty swallowing that involves mostly solid foods States that his heartburns have improved with his current Rx Was started additionally on Carafate when he was seen by GI a couple of months ago He denies any headaches or dizziness Denies any chest pains, no SOB No nausea/vomiting, no abdominal pain No change in bowel habits noted Denies any acute urinary symptoms PFSH Medical History Synovial cyst of right knee 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 1. Little interest or pleasure in doing things: not at all 2. Feeling down, depressed, or hopeless: not at all 3. Trouble falling or staying asleep, or sleeping too much: not at all 4. Feeling tired or having little energy: not at all 5. Poor appetite or overeating: not at all 6. Feeling bad about yourself - or that you are a failure or have let yourself or your family down: not at all 7. Trouble concentrating on things, such as reading the newspaper or watching television: not at all 8. Moving or speaking so slowly that other people could have noticed. Or the opposite - being so fidgety or restless that you have been moving around a lot more than usual: not at all 9. Thoughts that you would be better off or of hurting yourself in some way: not at all Total score: 0 Depression Screening Interpretation: Negative Depression Screening Done: Yes 86436 - PHQ-9 Billing: Yes Source: Developed by Drs. Juanito Mederos, Dania Anglin, Josias Melara and colleagues, with an educational veronica from [employer]. Thrive Questionnaire Date Thrive assessed: 01/10/24 I am a: Patient What is your living situation today?: I have a steady place to live Within the past 12 months, did the food you bought not last and you didn't have the money to get more?: Never true Within the past 12 months, did you worry whether your food would run out before you got money to buy more?: Never true Do you have trouble paying for medicines?: No Do you have trouble getting transportation to medical appointments?: No Do you have trouble paying your heating and electricity bill?: No Do you have trouble taking care of your child, family member or friend?: No Do you have trouble with day-to-day activities such as bathing, preparing meals, shopping, managing finances, etc.?: No Are you currently unemployed and looking for a job?: No Are you interested in more education?: No Please select the resources that you would like help with: None Currently or been in a relationship where the following occur: no concerns reported THRIVE Score: 0 AUDIT C Alcohol Use Questionnaire (AUDIT-C) 1. How often do you have a drink containing alcohol?: Never 3. How often do you have six or more drinks on one occasion?: Never Total Score: 0 Score Reviewed/Action Taken: Yes YAHIR-7 AMB Questionnaire YAHIR-7 Date YAHIR - 7 assessed: 09/12/23 Source: Developed by Drs. Juanito Mederos, Dania Anglin, Josias Melara and colleagues, with an educational veronica from [employer]. Review of Systems Const Denies chills, Denies fatigue, Denies fever(s), Denies headache(s), Denies malaise and Denies weakness Eyes Denies blurry vision, Denies change in vision, Denies irritation and Denies itchy eyes ENT Reports dysphagia (mostly to solid foods), Denies dizziness, Denies otalgia, Denies headache(s), Denies nasal congestion, Denies neck pain, Denies odynophagia and Denies sore throat Card Denies chest pain, Denies rapid heart rate, Denies irregular heart rhythm, Denies palpitations and Denies dyspnea Resp Denies chest congestion, Denies cough, Denies dyspnea and Denies wheezing GI Denies abdominal pain, Denies bloating, Denies constipation, Reports dysphagia ( mostly to solid foods), Denies heartburn, Denies diarrhea, Denies nausea, Denies odynophagia and Denies vomiting Denies hematuria, Denies difficulty urinating, Denies dysuria, Denies urinary frequency and Denies urinary urgency Musc Denies back pain, Denies arthralgias, Denies joint swelling, Denies muscle weakness and Denies neck pain Skin/Breast Denies change in pigmentation, Denies lesions, Denies rash and Denies unusual bruising Neuro Denies dizziness, Denies headache(s), Denies paresthesias and Denies weakness Endo Denies fatigue and Denies palpitations Aller/Immun Denies itchy eyes and Denies wheezing Physical exam (Primary Care) Vital Signs: Last Vital Signs Pulse 75 01/10/24 08:49 BP 102/66 01/10/24 08:49 Pulse Ox 98 01/10/24 08:49 Oxygen Delivery Method Room Air 01/10/24 08:49 BMI result Body Mass Index 17.8 Tobacco/Smoking Status: Tobacco use Status Tobacco use date assessed 09/12/23 01/10/24 08:53 Patient Tobacco Use Status Never used Tobacco 01/10/24 08:53 e-Cigarette/Vaping Use Never Used 01/10/24 08:53 Depression Screening Interpretation: Negative Thrive Assessment: Date of Thrive Assessment Date Thrive assessed 09/12/23 01/10/24 08:53 Currently or been in a relationship where the following occur: no concerns reported Const General: no acute distress, alert and awake Orientation/consciousness: patient oriented x3 [facility]: Yes normocephalic and Yes atraumatic Ears: external ears normal, TM's normal bilaterally and EAC's normal General nose exam: No nasal discharge present Face and sinus: Yes normal facial exam and Yes sinuses nontender Teeth and gingiva: dentition normal Throat: Yes posterior oropharynx normal and Yes tonsils normal (no TP congestion) Eyes Eyelids: Yes eyelids normal Conjunctivae: conjunctivae normal Pupils: Equal, round and reactive pupils present EOM: EOMs intact bilaterally Neck Neck: Yes no lymphadenopathy and Yes supple Thyroid: Thyroid normal Resp Auscultation: clear to auscultation bilaterally, no rales and no wheezes Cardio Rate: regular rate Rhythm: regular rhythm Heart sounds: no murmurs GI Palpation (GI): Soft to palpation, nontender and No hepatosplenomegaly present Auscultation: normal bowel sounds General: Yes no CVA tenderness Back/Spine/Pelvis Back: no CVA tenderness Thoracic/Lumbar Spine: thoracic and lumbar spine normal to inspection Skin Lesions: no lesions Rashes: no rashes Neuro General: patient oriented x3, moves all extremities, no focal motor deficits and CN's II-XI intact bilaterally Cranial nerves: Yes Equal, round and reactive pupils present Cognition (Neuro): normal cognition Gait exam (Neuro): Normal gait present Extrem General: Yes no clubbing, cyanosis or edema Assessment and Plan Assessment & Plan (1) Annual physical exam: Code(s): Z00.00 - Encounter for general adult medical examination without abnormal findings Plan: Check labs (2) PVNS (pigmented villonodular synovitis): Code(s): M12.20 - Villonodular synovitis (pigmented), unspecified site Plan: S/P knee arthroplasty at [facility] back in 2016 Follow up with orthopedics as scheduled; he also sees a specialist for his knee at [facility] (3) Dysphagia: Comment: Dysphagia versus globus-anxiety Code(s): R13.10 - Dysphagia, unspecified Qualifiers: Dysphagia type: unspecified Qualified Code(s): R13.10 - Dysphagia, unspecified Plan: Upper GI series done last year revealed findings of GERD and small hiatal hernia He was seen by GI a couple of months ago and continued on Omeprazole 40 mg QD and was started additionally on Carafate 1 gm QID Patient states that his symptoms of dysphagia have not changed much on his Rx although his heartburns have improved H. 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 Panel Today Z00.00 - Encounter for general adult medical examination without abnormal findings Cholesterol Today Z00.00 - Encounter for general adult medical examination without abnormal findings TSH reflex Free T4 Today E78.00 - Pure hypercholesterolemia, unspecified, Z00.00 - Encounter for general adult medical examination without abnormal findings UA CC w/rflx Micro + Cult Today R30.0 - Dysuria, Z00.00 - Encounter for general adult medical examination without abnormal findings Coding Level of Care Code Est Pt Prev Care 18-39y([id number]) Diagnoses Annual physical exam Z00.00 PVNS (pigmented villonodular synovitis) M12.20 Dysphagia, unspecified type R13.10 Dysphagia type: unspecified Selective mutism F94.0
== END 2024-01-10 09:28 | disposition home or self-care (01) ==
PROVIDERS: PCP Internal Medicine; Visit Provider Internal Medicine
DX: Z00.00 Encounter for general adult medical examination without abnormal findings (principal); M12.20 Villonodular synovitis (pigmented), unspecified site; R13.10 Dysphagia, unspecified; F94.0 Selective mutism
CPT/HCPCS: 99395

== ENCOUNTER 2024-01-10 09:33 | Outpatient (REF) | payer OTHER, SELFPAY ==
[2024-01-10 09:58] LABS: MANUAL DIFF FLAG NO
[2024-01-10 10:11] LABS: Appearance Urine Clear; Color Urine Yellow; Glucose Urine UA Negative (Negative); Leukocyte Esterase Urine Negative (Negative); Nitrite Urine Negative (Negative); Specific Gravity - Urine <= 1.005 (1.005-1.025); Urine Blood Negative (Negative); Urine Ketones Negative (Negative); Urine Protein Negative (Neg-Trace)
[2024-01-10 10:15] LABS: Basophils Absolute Auto 0.1 X10*3/uL (0.0-0.2); Basophils Percent Auto 1.1 % (0-2); Eosinophils Absolute Auto 0.1 X10*3/uL (0.0-0.4); Eosinophils Percent Auto 1.8 % (0-4); Hematocrit 42.6 % (42.0-52.0); Hemoglobin 14.9 g/dl (14.0-18.0); Imm Gran Abs Auto 0.01 X10*3/uL (0.00-0.03); Imm Gran Pct Auto 0.2 % (0.0-0.4); Lymphocytes Absolute Auto 1.2 X10*3/uL (1.2-4.9); Lymphocytes Percent Auto 26.4 % (20-40); Mean Corpuscular Hemoglobin 30.5 pg (27.0-33.0); Mean Corpuscular Volume 87.1 fL (80.0-98.0); Mean Platelet Volume 9.4 fL (9.4-12.4); Monocytes Absolute Auto 0.5 X10*3/uL (0.1-1.2); Monocytes Percent Auto 9.9 % (2-11); Neutrophils Absolute Auto 2.8 x10*3/uL (2.0-8.3); Neutrophils Percent Auto 60.6 % (45-73); Platelet Count 202 X10*3/uL (160-400); Red Blood Count 4.89 X10*6/uL (4.60-5.80); Red Cell Distribution Width 11.9 % (11.0-16.0); White Blood Count 4.6 X10*3/uL (4.8-10.8)
[2024-01-10 11:44] LABS: Alanine Aminotransferase 13 U/L (0-40); Albumin Level 4.7 g/dL (3.5-5.0); Alkaline Phosphatase 54 U/L (39-117); Anion Gap 13 (12-20); Aspartate Amino Transferase 17 U/L (5-37); Bilirubin Total 0.6 mg/dL (0.0-1.0); Blood Urea Nitrogen 10 mg/dL (9-16); Calcium 9.6 mg/dL (8.4-10.2); Carbon Dioxide 27 mmol/L (22-29); Chloride 107 mmol/L (96-108); Cholesterol 196 mg/dL (<200); Estimated Glomerular Filt Rate > 60; Glucose Random 84 mg/dL (60-115); Potassium 3.8 mmol/L (3.3-5.1); Sodium 143 mmol/L (135-145); Total Protein 7.2 g/dL (6.5-8.0)
[2024-01-10 11:45] LABS: TSH reflex Free T4 0.67 uIU/mL (0.32-4.0); Vitamin D 25-OH Total 34.2 ng/mL (>30)
== END 2024-01-10 09:34 | disposition home or self-care (01) ==
LOC: HO.LAB 09:33
PROVIDERS: PCP Internal Medicine; Visit Provider Internal Medicine
DX: Z00.00 Encounter for general adult medical examination without abnormal findings (principal); D64.9 Anemia, unspecified; E78.00 Pure hypercholesterolemia, unspecified; R30.0 Dysuria; E55.9 Vitamin D deficiency, unspecified
CPT/HCPCS: 36415; 80053; 81003; 82306; 82465; 84443; 85025

== ENCOUNTER 2024-01-25 13:45 | Outpatient (REF) | payer OTHER, SELFPAY ==
[2024-01-25 15:51] LABS: C Reactive Protein < 0.04 mg/dL (< or = 0.50)
[2024-01-25 16:25] LABS: Folate 12.1 ng/mL (> or = 4.0); Vitamin B12 486 pg/mL (200-900)
[2024-01-25 17:11] LABS: Erythrocyte Sedimentation Rate 2 MM/HR (0-15)
[2024-01-29 23:03] LABS: Endomysial IgA Antibody Negative (Negative)
[2024-01-30 14:14] LABS: Zinc 70 mcg/dL (60-130)
[2024-02-01 13:27] LABS: Gliadin Deamidated IgA Ab <1.0 U/mL; Gliadin Deamidated IgG Ab <1.0 U/mL
== END 2024-01-25 13:46 | disposition home or self-care (01) ==
LOC: HO.LAB 13:45
PROVIDERS: PCP Internal Medicine; Visit Provider Physician Assistant
DX: K21.9 Gastro-esophageal reflux disease without esophagitis (principal); R13.10 Dysphagia, unspecified; F94.0 Selective mutism; F41.9 Anxiety disorder, unspecified; R63.4 Abnormal weight loss
CPT/HCPCS: 36415; 82607; 82746; 84630; 85652; 86140; 86231; 86258; 99212

== ENCOUNTER 2024-01-25 13:45 | Outpatient (AMB) | payer OTHER, SELFPAY ==
--- NOTE | 2024-01-25 13:46 | MHC.OFFVIS ---
Vital Signs 01/25/24 13:49 Height 5 ft 5 in Weight 104 lb BMI 17.3 BP 108/56 L Blood Pressure Location Lt brachial Position Sitting Pulse 75 Intake Visit Reasons: H. Pylori Follow Up Intake Note: Patient follow is dysphagia and H pylori results. Patient cc: swallowing problems , good appetite but he is loosing weight every day. 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 Surgical History H/O right knee surgery Family History Mother High cholesterol Father High blood pressure Other Mental health problem Social History Housing: Condominium Alcohol intake: never Patient Tobacco Use Status: Never used Tobacco e-Cigarette/Vaping Use: Never Used Second Hand Smoke Exposure: No service: No Current occupational status: disabled Cognitive needs: No Hearing needs: No Vision needs: Yes (glasses) Review of Systems Const All systems reviewed & are unremarkable except as noted in HPI and below ENT Reports dysphagia Card Denies chest pain and Denies dyspnea Resp Denies dyspnea GI Reports dysphagia, Denies heartburn, Denies nausea and Denies vomiting Psych Reports anxiety and Reports difficulty concentrating Physical Exam Vital Signs: Last Vital Signs Pulse 75 01/25/24 13:49 BP 108/56 L 01/25/24 13:49 BMI result Body Mass Index 17.3 Const General: cooperative, no acute distress and anxious Nutritional Appearance: thin Orientation/consciousness: patient oriented x3 Limitations: no limitations Eyes Sclerae: sclerae normal Resp Effort & Inspection: normal respiratory effort and able to speak in complete sentences Auscultation: clear to auscultation bilaterally, no rhonchi and no wheezes Cardio Rate: regular rate Rhythm: regular rhythm Heart sounds: S1 normal heart sound present and S2 normal heart sound present GI Other: Flat Palpation (GI): Soft to palpation and nontender Auscultation: normal bowel sounds Neuro General: patient oriented x3 Extrem General: Yes full ROM Psych Appearance: grossly normal Mental Status: mental status grossly normal Speech and movement: Clear speech present Affect: Anxious affect present Attitude: cooperative Thought process: Circumstantial thought process present Thought content: Normal thought content present Results Reviewed Results Reviewed: FL/FL upper GI w Ba Swallow IMPRESSION: 1. Small type I hiatal hernia 2. Significant gastroesophageal reflux 3. Essentially normal stomach, duodenal bulb and sweep. 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 Category: Medical (5) Anxiety: Comment: Very anxious, somewhat timid Code(s): F41.9 - Anxiety disorder, unspecified Category: Medical (6) Weight loss: Comment: Further evaluate, EGD discussed procedure, rare risks need for escort-may be low yield Code(s): R63.4 - Abnormal weight loss Category: Medical Plan EGD- Labs Pantoprazole 40 mg Orders: Orders Endomysial IgA rflx Titer 01/25/24 R13.10 - Dysphagia, unspecified, R63.4 - Abnormal weight loss Erythrocyte Sedimentation Rate 01/25/24 R13.10 - Dysphagia, unspecified, R63.4 - Abnormal weight loss Zinc 01/25/24 R13.10 - Dysphagia, unspecified, R63.4 - Abnormal weight loss Vitamin B12 and Folate 01/25/24 R13.10 - Dysphagia, unspecified, R63.4 - Abnormal weight loss EDG - GI Use Only 01/25/24 F41.9 - Anxiety disorder, unspecified, K21.9 - Gastro-esophageal reflux disease without esophagitis, K44.9 - Diaphragmatic hernia without obstruction or gangrene, R13.10 - Dysphagia, unspecified Gliadin Ab Panel 01/25/24 F41.9 - Anxiety disorder, unspecified, K21.9 - Gastro-esophageal reflux disease without esophagitis, R13.10 - Dysphagia, unspecified, R63.4 - Abnormal weight loss C Reactive Protein 01/25/24 K21.9 - Gastro-esophageal reflux disease without esophagitis, R13.10 - Dysphagia, unspecified, R63.4 - Abnormal weight loss Medications: New pantoprazole 40 mg PO DAILY 30 days 30 tabs 11RF Patient Instructions: EGD-may be low yield Labs Pantoprazole 40 mg Coding Level of Care Code Est Pt Level 4 (38627) Diagnoses GERD (gastroesophageal reflux disease) K21.9 Dysphagia, unspecified type R13.10 Dysphagia type: unspecified Selective mutism F94.0 Anxiety F41.9 Weight loss R63.4 Time Spent (min) 35
[2024-01-25 13:49] VITALS: BP 108/56; PULSE 75; BMI 17.3
== END 2024-01-25 15:11 | disposition home or self-care (01) ==
PROVIDERS: PCP Internal Medicine; Visit Provider Physician Assistant
DX: K21.9 Gastro-esophageal reflux disease without esophagitis (principal); R13.10 Dysphagia, unspecified; F94.0 Selective mutism; F41.9 Anxiety disorder, unspecified; R63.4 Abnormal weight loss
CPT/HCPCS: 99214

== ENCOUNTER 2024-03-26 08:19 | Day surgery (SDC) | payer OTHER, SELFPAY ==
[2024-03-26] VITALS (7 sets, daily range): BP systolic 93–122; BP diastolic 50–72; PULSE 67–79; RESP 14–16; TEMP 36.6–36.8; O2SAT 98–100; BMI 16.8
[2024-03-26] MEDS: Lactated Ringers 1,000 ML 100 ML IVCONT (09:16)
--- NOTE | 2024-03-26 09:40 | HO.ANESPROP2 ---
Documented by User: Adrianna Candelaria NP 03/23/24 10:30 HPI - Anesthesia Eval Consult details Narrative: 28yo M for Upper Endoscopy PMFSH Active Problems Active Problems: All Active Problems Weight loss (Acute) Anxiety (Acute) Hiatal hernia (Acute) Dysphagia (Acute) Difficulty swallowing (Acute) GERD (gastroesophageal reflux disease) (Acute) Hyperpigmented skin lesion (Acute) Nevus (Acute) Encounter for dental examination and cleaning without abnormal findings (Acute) Preoperative examination (Acute) Iliotibial band syndrome affecting left lower leg (Acute) Trochanteric bursitis of left hip (Acute) Lesion of left femur (Acute) PVNS (pigmented villonodular synovitis) (Acute) Knee pain, right (Acute) Annual physical exam (Acute) Otitis media of both ears (Acute) Selective mutism (Acute) Otitis externa in other diseases classified elsewhere, left ear (Acute) Wart (Acute) Past Medical History Medical History Synovial cyst of right knee 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 Family History Family History Mother High cholesterol Father High blood pressure Other Mental health problem Surgical History Surgical History H/O right knee surgery Social History Social History Housing: Condominium Alcohol intake: never Patient Tobacco Use Status: Never used Tobacco e-Cigarette/Vaping Use: Never Used Second Hand Smoke Exposure: No Use of substances other than those prescribed or required for medical reasons: No Are you DNR?: No Advance Directives: No Advance Directives Information Provided: Yes service: No Current occupational status: disabled Cognitive needs: No Hearing needs: No Vision needs: Yes (glasses) Meds Allergies Allergy/AdvReac Type Severity Reaction Status Date / Time No Known Allergies Allergy Verified 01/25/24 13:46 Assessment and Plan Assessment Anesthesia Assessment: Chart Reviewed Documented by User: Shahnaz Park DO 03/26/24 09:41 PENDING SALE TO [facility] Past Medical History Medical History Synovial cyst of right knee 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 Family History Family History Mother High cholesterol Father High blood pressure Other Mental health problem Family history of problems with anesthesia: No Surgical History Surgical History H/O right knee surgery History of Problems with Anesthesia: No Social History Social History Housing: Condominium Alcohol intake: never Patient Tobacco Use Status: Never used Tobacco e-Cigarette/Vaping Use: Never Used Second Hand Smoke Exposure: No Use of substances other than those prescribed or required for medical reasons: No Are you DNR?: No Advance Directives: No Advance Directives Information Provided: Yes service: No Current occupational status: disabled Cognitive needs: No Hearing needs: No Vision needs: Yes (glasses) Meds Allergies Allergy/AdvReac Type Severity Reaction Status Date / Time No Known Allergies Allergy Verified 01/25/24 13:46 Exam Exam Date and Time: March 26, 2024 0938 Height,Weight and Vital Signs: Height 5 ft 6 in Weight 47.23 kg Vital Signs Temperature 98.3 F 03/26/24 09:17 Pulse Rate 76 03/26/24 09:17 Respiratory Rate 16 03/26/24 09:17 Blood Pressure 122/72 03/26/24 09:17 Pulse Oximetry 100 03/26/24 09:17 Oxygen Delivery Method Room Air 03/26/24 09:17 Temperature 98.3 F 03/26/24 09:17 Pulse Rate 76 03/26/24 09:17 Respiratory Rate 16 03/26/24 09:17 Blood Pressure 122/72 03/26/24 09:17 Pulse Oximetry 100 03/26/24 09:17 Oxygen Delivery Method Room Air 03/26/24 09:17 Airway Mallampati Class: I TM Dist: >3cm Neck ROM: Full Loose/Missing/Broken Teeth: Yes (loose tooth bottom front) Heart: S1S2 Lungs: CTAB Assessment and Plan Assessment Anesthesia Assessment: Anesthesia Plan Discussed and Chart Reviewed Final Anesthetic Review Family History of Problems with Anesthesia: No History of Problems with Anesthesia: No NPO: Yes ASA Class: II Final Preanesthetic Review: No Changes in Pt Med Stat, Meds/Allgs Chart Reviewed, Consent Obtained/Reviewed and Anes Risks/Benef Reviewed Patient Risk: Low Procedure Risk: Low Anesthetic Plan Anesthetic Plan: MAC: and Agree w/ Assess. and Plan Disposition: Standard PACU
--- NOTE | 2024-03-26 10:20 | MHC.SHP ---
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) History of Previous Operations: Relevant previous surgery/procedure and date(s) (H/O right knee surgery) Allergies: Allergies Allergy/AdvReac Type Severity Reaction Status Date / Time No Known Allergies Allergy Verified 01/25/24 13:46 Review of Systems Sugical H&P ROS: Negative: Constitution, Cardiovascular, Respiratory, Neurological, Psychiatric, Hem-Onc, Allergic/Immunologic, Gastrointestinal, Genitourinary, Musculoskeletal, Integumentary, Endocrine and Eyes/Ears/Nose/Throat Exam Surgical H&P Exam: Normal: HEENT, Normal: Heart, Normal: Lungs, Normal: Extremities, Normal: Abdomen, Normal: Skin and Normal: Neurological Plan Diagnosis/Plan: Unchanged I have reviewed the history and physical and performed a pertinent physical examination on my patient. No changes have occurred unless specified. Time Spent With Patient Time: Total time managing care of this patient today ____ minutes.
--- NOTE | 2024-03-26 10:55 | W.PM.OPN ---
Operative Note Operative Note Date of Service: 03/26/24 Narrative: Procedure Description: EGD Indication: dysphagia Anesthesia: MAC FLEXIBLE TRANSORAL UPPER GASTROINTESTINAL ENDOSCOPY UPPER ENDOSCOPY Consent: Indications for the procedure and potential complications of bleeding, perforation, reaction to medications and missed diagnosis were discussed with the patient and informed consent was obtained. Instrument: Olympus GIF H 190 J mid size upper endoscope Monitoring: Vital signs and clinical assessment, continuous EKG monitoring, Pulse oximetry, Carbon Dioxide monitoring and blood pressure monitoring were done throughout the procedure. Procedure: The patient was placed in the left lateral decubitis position and pre-procedure medications were administered and a bite block was placed. The endoscope was inserted into the mouth and advanced under direct vision to the third part of duodenum. A careful inspection was made as the upper endoscope was withdrawn including a retroflexed examination of the proximal stomach; Findings and interventions are described below. Findings: Larynx:normal Esophagus: GE junction at 40 cm, diaphragm hiatus at 42 cm, with tertiary contractions noted, 2 cm sliding hiatal hernia and patulous LES, balloon dilation done at UES and LES to 19 mm with small tear seen in distal esophagus, schatzki ring noted Stomach: normal . Biopsies were obtained. Grade 4 flap valve on retroflexed examination of the cardia. Duodenum: Normal bulb and descending duodenum, Intervention: Biopsies as noted above, balloon dilation Impression/Findings: hiatal hernia schatzki ring esophageal dysmotility patulous GEJ PLAN: ensure PPI compliance, can change PPi if taking and ongoing sx if ongoing sx then can consider MARINELLI, manometry GERD precautions
== END 2024-03-26 14:33 | disposition home or self-care (01) ==
PROVIDERS: PCP Internal Medicine; Visit Provider Internal Medicine Gastroenterology
PROC: 0DJ08ZZ Inspection of Upper Intestinal Tract, Via Natural or Artificial Opening Endoscopic (ICD-10-PCS; CPT 43235; principal; 2024-03-26 10:40)
DX: R13.10 Dysphagia, unspecified (principal); K22.2 Esophageal obstruction; K21.9 Gastro-esophageal reflux disease without esophagitis; K22.89 Other specified disease of esophagus; K44.9 Diaphragmatic hernia without obstruction or gangrene; K22.4 Dyskinesia of esophagus; R63.4 Abnormal weight loss; Z68.1 Body mass index [BMI] 19.9 or less, adult; M71.21 Synovial cyst of popliteal space [Baker], right knee; M12.261 Villonodular synovitis (pigmented), right knee; F94.0 Selective mutism; F41.9 Anxiety disorder, unspecified; Z79.899 Other long term (current) drug therapy; Z98.890 Other specified postprocedural states
CPT/HCPCS: 43249; 43239; 88305; 88313; 88342; C1726; J1596; J2250; J2704

== ENCOUNTER → 2024-03-26 08:19 | Outpatient (BNV) | payer OTHER, SELFPAY | PROVIDERS: PCP Internal Medicine; Visit Provider Internal Medicine Gastroenterology | DX: K22.2 Esophageal obstruction (principal); R13.10 Dysphagia, unspecified; K22.4 Dyskinesia of esophagus; K22.89 Other specified disease of esophagus | CPT/HCPCS: 43239; 43249 ==

== ENCOUNTER 2024-04-23 14:28 | Outpatient (AMB) | payer OTHER, SELFPAY ==
[2024-04-23 14:54] VITALS: BP 100/74; PULSE 70; O2SAT 98; BMI 17.0
--- NOTE | 2024-04-23 14:54 | MHC.PC.OV ---
Vital Signs 04/23/24 14:54 Height 5 ft 6 in Weight 105 lb 4 oz BMI 17.0 BP 100/74 Blood Pressure Location Lt brachial Position Sitting Pulse 70 Pulse Source Pulse Oximeter Pulse Oximetry (%) 98 Oxygen Delivery Method Room Air Intake Visit Reasons: Spot on forearm Pantomimist Required: No Accompanied by: Self / Same As Patient Allergies No Known Allergies Allergy (Verified 04/24/24 11:37) Medication List - Last Reconciled 04/24/24 by Ronny Stewart MD omeprazole 40 mg (2 x 20 mg) PO DAILY 30 days pantoprazole 40 mg PO DAILY 30 days sucralfate 1 g (10 mL) PO QIDACHS 4 weeks Tobacco use date assessed: 04/23/24 Dental Screening Dental Screen Date: 04/23/24 Did you have a dental visit in the last 12 months?: Yes Did you have a dental problem in the last 6 months where you did not have access to dental care?: No Was dental information given to patient?: Patient has dentist HPI Spot on forearm HPI Details 29-year-old male presents to the office for a sick visit. Patient has a bump on his left forearm that he would like evaluated. Does not recall the onset. Reports no symptoms of pain. The lump is not increasing in size. 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 1. Little interest or pleasure in doing things: not at all 2. Feeling down, depressed, or hopeless: not at all 3. Trouble falling or staying asleep, or sleeping too much: not at all 4. Feeling tired or having little energy: not at all 5. Poor appetite or overeating: not at all 6. Feeling bad about yourself - or that you are a failure or have let yourself or your family down: not at all 7. Trouble concentrating on things, such as reading the newspaper or watching television: not at all 8. Moving or speaking so slowly that other people could have noticed. Or the opposite - being so fidgety or restless that you have been moving around a lot more than usual: not at all 9. Thoughts that you would be better off or of hurting yourself in some way: not at all Total score: 0 Depression Screening Interpretation: Negative Depression Screening Done: Yes 25104 - PHQ-9 Billing: Yes Source: Developed by Drs. Juanito Mederos, Dania Anglin, Josias Melara and colleagues, with an educational veronica from [employer]. Thrive Questionnaire Date Thrive assessed: 04/23/24 I am a: Patient What is your living situation today?: I have a steady place to live Within the past 12 months, did the food you bought not last and you didn't have the money to get more?: Never true Within the past 12 months, did you worry whether your food would run out before you got money to buy more?: Never true Do you have trouble paying for medicines?: No Do you have trouble getting transportation to medical appointments?: No Do you have trouble paying your heating and electricity bill?: No Do you have trouble taking care of your child, family member or friend?: No Do you have trouble with day-to-day activities such as bathing, preparing meals, shopping, managing finances, etc.?: No Are you currently unemployed and looking for a job?: No Are you interested in more education?: No Please select the resources that you would like help with: None Currently or been in a relationship where the following occur: No concerns reported THRIVE Score: 0 AUDIT C Alcohol Use Questionnaire (AUDIT-C) 1. How often do you have a drink containing alcohol?: Never 3. How often do you have six or more drinks on one occasion?: Never Total Score: 0 Score Reviewed/Action Taken: Yes YAHIR-7 AMB Questionnaire YAHIR-7 Date YAHIR - 7 assessed: 04/23/24 Feeling nervous, anxious, or on edge: 0 = Not at all Not being able to stop or control worryin = Not at all Worrying too much about different things: 0 = Not at all Trouble relaxin = Not at all Being so restless that it is hard to sit still: 0 = Not at all Becoming easily annoyed or irritable: 0 = Not at all Feeling afraid as if something awful might happen: 0 = Not at all Total YAHIR-7 score (0-4 normal; 5-9 mild; 10-14 moderate; 15-21 severe): 0 Source: Developed by Drs. Juanito Mederos, Dania Anglin, Josias Melara and colleagues, with an educational veronica from [employer]. Physical exam (Primary Care) Vital Signs: Last Vital Signs Pulse 70 04/23/24 14:54 BP 100/74 04/23/24 14:54 Pulse Ox 98 04/23/24 14:54 Oxygen Delivery Method Room Air 04/23/24 14:54 BMI result Body Mass Index 17.0 Tobacco/Smoking Status: Tobacco use Status Tobacco use date assessed 04/23/24 04/23/24 14:58 Patient Tobacco Use Status Never used Tobacco 04/23/24 14:58 e-Cigarette/Vaping Use Never Used 04/23/24 14:58 PHQ-9: PHQ-9 Score PHQ-9: Total score 0 04/23/24 15:13 Depression Screening Interpretation: Negative Thrive Assessment: Date of Thrive Assessment Date Thrive assessed 04/23/24 04/23/24 14:58 Currently or been in a relationship where the following occur: No concerns reported Extrem Other: Left forearm: Small brown papule. No irregular margins or bleeding areas. Assessment and Plan Assessment & Plan (1) Rash: Code(s): R21 - Rash and other nonspecific skin eruption Plan: Reassurance. Insignificant lesion. Coding Level of Care Code Est Pt Level 3 (73571) Complex EM visit Add On G2211 Diagnoses Rash R21
== END 2024-04-23 16:55 | disposition home or self-care (01) ==
PROVIDERS: PCP Internal Medicine; Visit Provider Internal Medicine
DX: R21 Rash and other nonspecific skin eruption (principal)
CPT/HCPCS: 99213; G2211

== ENCOUNTER 2024-06-26 09:20 | Outpatient (AMB) | payer OTHER, SELFPAY ==
--- NOTE | 2024-06-26 10:51 | A.OFFVIS_ITS ---
Intake Visit Reasons: OV- Right knee pain/stiffness Allergies No Known Allergies Allergy (Verified 04/24/24 11:37) HPI HPI OV- Right knee pain/stiffness: Details: 29-year-old male who presents in the office today for a follow-up of right knee pain. I last saw the patient in the office on 08/17/22 when she was referred to physical therapy and also to Pain Management. While in the office today, The patient has a past medical history of PVNS. He has been seen by an orthopedic oncologist in [place]. In 2022, his PVNS diagnosis was stable. The recommendation was for monitoring with MRI every two to three years. The patient reports he was in confucianism a few weeks ago and experienced an increased pain on the posterior medial aspect of the right knee when he moved from seated to standing position. Due to the severe pain, he was unable to wait until the end in the confucianism. He had to use crutches to assist with ambulation for a few days; however, he is currently not using the crutches. He mentions his right knee pain has improved but it is not at his normal baseline. 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 Surgical History (Updated 06/12/24 @ 10:40 by Morelia Nicholas) History of esophagogastroduodenoscopy (EGD) H/O right knee surgery Family History Mother High cholesterol Father High blood pressure Other Mental health problem Social History Housing: Condominium Alcohol intake: never Patient Tobacco Use Status: Never used Tobacco e-Cigarette/Vaping Use: Never Used Second Hand Smoke Exposure: No service: No Current occupational status: disabled Cognitive needs: No Hearing needs: No Vision needs: Yes (glasses) Review of Systems Const All systems reviewed & are unremarkable except as noted in HPI and below Physical Exam Const General: cooperative, healthy appearing and no acute distress Resp Effort & Inspection: normal respiratory effort and able to speak in complete sentences Cardio Rate: regular rate Peripheral pulses: Peripheral pulses 2+ throughout GI Palpation (GI): Soft to palpation Skin Lesions: no lesions Rashes: no rashes Extrem Other: Right knee: Normal to inspection. No ecchymosis, erythema, or joint effusion. Slight tenderness to palpation along the medial joint lines. Full knee extension and flexion. Unable to assess Fanta?s or anterior drawer. NVI. Assessment & Plan Assessment & Plan (1) PVNS (pigmented villonodular synovitis): Code(s): M12.20 - Villonodular synovitis (pigmented), unspecified site Category: Medical (2) Knee pain, right: Code(s): M25.561 - Pain in right knee Category: Medical Plan Ms. Kessler is a 29-year-old male who presents in the office today for a follow-up of right knee pain. I last saw the patient in the office on 08/17/22 when she was referred to physical therapy and also to Pain Management. While in the office today, The patient has a past medical history of PVNS. He has been seen by an orthopedic oncologist in [place]. In 2022, his PVNS diagnosis was stable. The recommendation was for monitoring with MRI every two to three years. The patient reports he was in confucianism a few weeks ago and experienced an increased pain on the posterior medial aspect of the right knee when he moved from seated to standing position. Due to the severe pain, he was unable to wait until the end in the confucianism. He had to use crutches to assist with ambulation for a few days; however, he is currently not using the crutches. He mentions his right knee pain has improved but it is not at his normal baseline. I have placed an order for an MRI of the right knee to further evaluate the integrity of the knee. Follow-up will be after the MRI is obtained, or sooner if needed. Orders: Orders MR knee RT wo con Today M12.20 - Villonodular synovitis (pigmented), unspecified site, M25.561 - Pain in right knee Patient Instructions: Scribed by Karuna Keith medical data analyst, for Bambi Enrique PA-C on 06/26/24 at 9:50 am EST. Coding Level of Care Code Est Pt Level 3 (72489) Diagnoses PVNS (pigmented villonodular synovitis) M12.20 Knee pain, right M25.561
== END 2024-06-26 10:12 | disposition home or self-care (01) ==
LOC: HO.HOS 09:20
PROVIDERS: PCP Internal Medicine; Visit Provider Physician Assistant
DX: M12.20 Villonodular synovitis (pigmented), unspecified site (principal); M25.561 Pain in right knee
CPT/HCPCS: 99213

== ENCOUNTER → 2024-06-26 09:20 | Outpatient (BNVA) | payer OTHER, SELFPAY | PROVIDERS: PCP Internal Medicine; Visit Provider Physician Assistant | DX: M25.561 Pain in right knee (principal); M25.661 Stiffness of right knee, not elsewhere classified; M12.20 Villonodular synovitis (pigmented), unspecified site | CPT/HCPCS: 99212 ==

== ENCOUNTER 2024-08-06 14:02 | Outpatient (REF) | payer OTHER, SELFPAY | END 2024-08-06 14:03 | disposition home or self-care (01) | LOC: HO.LAB 14:02 | PROVIDERS: PCP Internal Medicine; Visit Provider Nurse Practitioner Family | DX: K21.9 Gastro-esophageal reflux disease without esophagitis (principal); K44.9 Diaphragmatic hernia without obstruction or gangrene; R13.10 Dysphagia, unspecified; F94.0 Selective mutism; F41.9 Anxiety disorder, unspecified; R63.4 Abnormal weight loss; K20.90 Esophagitis, unspecified without bleeding | CPT/HCPCS: 36415; 86003; 99212 ==

== ENCOUNTER 2024-08-06 14:02 | Outpatient (AMB) | payer OTHER, SELFPAY ==
[2024-08-06 14:05] VITALS: BP 91/56; PULSE 77; BMI 16.9
--- NOTE | 2024-08-06 14:05 | A.OFFVIS_ITS ---
Vital Signs 08/06/24 14:05 Height 5 ft 6 in Weight 105 lb BMI 16.9 BP 91/56 L Blood Pressure Location Lt brachial Position Sitting Pulse 77 Intake Visit Reasons: Dysphagia/Angie pt Intake Note: Patient follow up for Dysphagia Patient cc: dysphagia with solid food, acid reflex with burning sensation. Denies any other GI issues. Diagnostic Sales Specialist Required: No Accompanied by: Family/Other Allergies No Known Allergies Allergy (Verified 08/06/24 14:06) HPI HPI Dysphagia/Angie pt: Details: LAST VISIT: IMPRESSION: 1. Small type I hiatal hernia 2. Significant gastroesophageal reflux 3. Essentially normal stomach, duodenal bulb and sweep. Assessment & Plan Assessment & Plan (1) GERD (gastroesophageal reflux disease): Comment: Very pleasant, Somewhat difficult to assess, anxiety seems to over rule Code(s): K21.9 - Gastro-esophageal reflux disease without esophagitis Category: Medical (2) Dysphagia: Comment: Dysphagia versus [id number] be functional Code(s): R13.10 - Dysphagia, unspecified Category: Medical Qualifiers: Dysphagia type: unspecified Qualified Code(s): R13.10 - Dysphagia, unspecified (3) Difficulty swallowing: Code(s): R13.10 - Dysphagia, unspecified Category: Medical (4) 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 Category: Medical (5) Anxiety: Comment: Very anxious, somewhat timid Code(s): F41.9 - Anxiety disorder, unspecified Category: Medical (6) Weight loss: Comment: Further evaluate, EGD discussed procedure, rare risks need for escort-may be low yield Code(s): R63.4 - Abnormal weight loss UPPER ENDOSCOPY: Findings: Larynx:normal Esophagus: GE junction at 40 cm, diaphragm hiatus at 42 cm, with tertiary contractions noted, 2 cm sliding hiatal hernia and patulous LES, balloon dilation done at [facility] and LES to 19 mm with small tear seen in distal esophagus, schatzki ring noted Stomach: normal . Biopsies were obtained. Grade 4 flap valve on retroflexed examination of the cardia. Duodenum: Normal bulb and descending duodenum, Intervention: Biopsies as noted above, balloon dilation Impression/Findings: hiatal hernia schatzki ring esophageal dysmotility patulous GEJ PLAN: ensure PPI compliance, can change PPi if taking and ongoing sx if ongoing sx then can consider MARINELLI, manometry GERD precautions PATHOLOGY: Addendum #1 Immunostain for H. pylori on A is negative. Additional level with AB/PAS on B is negative for intestinal metaplasia. Controls stain appropriately. Electronically Signed By: Bambi Garces 03/29/24 0906 Diagnosis A. Stomach, biopsy: Gastric body mucosa with lamina propria hemorrhage and focal minimal chronic inactive inflammation; negative for intestinal metaplasia and dysplasia. B. Gastroesophageal junction, biopsy: Squamocolumnar mucosa with minimal chronic inactive inflammation; no intestinal metaplasia seen on initial levels; negative for dysplasia (see comment). C. Esophagus, distal, biopsy: Squamous mucosa with no specific change; no columnar mucosa present. D. Esophagus, proximal, biopsy: Squamous mucosa with no specific change; no columnar mucosa present. Comment: (A): Immunostain for H. pylori pending; addendum to follow. (B): Additional level with AB/PAS stain pending; addendum to follow TODAY'S VISIT Patient is here today for follow-up visit after his upper endoscopy. Patient is accompanied by his mom. Previously seen by Carmen MOORE. Patient referred to our practice for significant reflux that was seen on upper GI series in July of 2023. Patient was placed on omeprazole without any success, therapy changed to pantoprazole. Patient reports that reflux has been controlled, however he continues to have trouble swallowing. Patient denies dyspepsia or odynophagia. Patient reports that it happens in his throat when he swallows dry or solid food. Patient had upper endoscopy in February esophageal dilation was performed and patient has not followed up with his GI provider as provider no longer works in this practice. Today during appointment patient voices concern of his dysphagia. Patient denies having any allergy. Denies any sore throat. No trouble swallowing liquids. 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 Surgical History History of esophagogastroduodenoscopy (EGD) H/O right knee surgery Family History Mother High cholesterol Father High blood pressure Other Mental health problem Social History Housing: Condominium Alcohol intake: never Patient Tobacco Use Status: Never used Tobacco e-Cigarette/Vaping Use: Never Used Second Hand Smoke Exposure: No service: No Current occupational status: disabled Cognitive needs: No Hearing needs: No Vision needs: Yes (glasses) Review of Systems Const Denies weight gain and Denies weight loss ENT Reports no additional complaints, Reports dysphagia and Denies odynophagia Card Reports no additional complaints Resp Reports no additional complaints GI Denies abdominal pain, Denies belching, Denies melena, Denies bloating, Denies change in bowel habits, Reports dysphagia, Denies excessive flatus, Denies dyspepsia, Denies heartburn, Denies diarrhea, Denies loose stools, Denies nausea, Denies odynophagia and Denies vomiting Reports no additional complaints Musc Reports no additional complaints Neuro Reports no additional complaints Psych Reports no additional complaints Endo Reports no additional complaints Physical Exam Vital Signs: Last Vital Signs Pulse 77 08/06/24 14:05 BP 91/56 L 08/06/24 14:05 BMI result Body Mass Index 16.9 Const General: healthy appearing and no acute distress Nutritional Appearance: underweight Orientation/consciousness: patient oriented x3 Resp Effort & Inspection: normal respiratory effort, able to speak in complete sentences, no tracheal deviation and symmetric chest movement Auscultation: clear to auscultation bilaterally Cardio Rate: regular rate GI Inspection: Yes normal to inspection and No distended Palpation (GI): Soft to palpation, not firm, nontender and No hepatosplenomegaly present Auscultation: normal bowel sounds General: Yes no CVA tenderness Back/Spine/Pelvis Back: no CVA tenderness Skin General skin exam: elasticity normal, turgor normal and dry skin Neuro General: patient oriented x3 Psych Appearance: grossly normal Mental Status: mental status grossly normal Assessment & Plan Assessment & Plan (1) Weight loss: Code(s): R63.4 - Abnormal weight loss Category: Medical (2) Hiatal hernia: Code(s): K44.9 - Diaphragmatic hernia without obstruction or gangrene Category: Medical (3) Dysphagia: Code(s): R13.10 - Dysphagia, unspecified Category: Medical Qualifiers: Dysphagia type: unspecified Qualified Code(s): R13.10 - Dysphagia, unspecified (4) GERD (gastroesophageal reflux disease): Code(s): K21.9 - Gastro-esophageal reflux disease without esophagitis Category: Medical Qualifiers: Esophagitis presence: without esophagitis Qualified Code(s): K21.9 - Gastro-esophageal reflux disease without esophagitis Plan Patient will go for modified barium swallow. His symptoms happening oropharyngeal more than esophageal. Had barium swallow done in July of 2023 that showed dysmotility of his esophagus as well as significant reflux. With this we might see reflux that is still not well controlled. Will have patient stop pantoprazole and start Nexium 40 mg. Avoid dietary triggers and late night snacking. Staying upright for minimum 3 hours after meals discussed with patient. Patient will be sent for allergen test. Denies having any allergies. Discussed with patient the importance of high-calorie meals. Patient will drink protein shakes in between meals. Follow-up in the office in 3 months, sooner on as needed basis. He is agreeable to this plan and verbalizes understanding of instructions. He was given the opportunity to ask questions and all questions answered. Thank you for allowing me to participate in his care Orders: Orders FL Modified Barium Swallow Today R13.10 - Dysphagia, unspecified Rast Allergen Today K21.9 - Gastro-esophageal reflux disease without esophagitis Medications: New esomeprazole magnesium (Nexium) 40 mg PO DAILY 30 caps 5RF K21.9 - Gastro- esophageal reflux disease without esophagitis Discontinued omeprazole Discontinued Reason: Doctor's Order 40 mg (2 x 20 mg) PO DAILY 30 days 60 caps 3RF K21.9 - Gastro-esophageal reflux disease without esophagitis pantoprazole Discontinued Reason: Doctor's Order 40 mg PO DAILY 30 days 30 tabs 11RF Coding Level of Care Code Est Pt Level 4 (37998) Diagnoses Weight loss R63.4 Hiatal hernia K44.9 Dysphagia, unspecified type R13.10 Dysphagia type: unspecified Gastroesophageal reflux disease without esophagitis K21.9 Esophagitis presence: without esophagitis Time Spent (min) 40 Comment 25 minutes spent with patient and additional 15 minutes spent reviewing his records
== END 2024-08-06 14:46 | disposition home or self-care (01) ==
PROVIDERS: PCP Internal Medicine; Visit Provider Nurse Practitioner Family
DX: R63.4 Abnormal weight loss (principal); K44.9 Diaphragmatic hernia without obstruction or gangrene; R13.10 Dysphagia, unspecified; K21.9 Gastro-esophageal reflux disease without esophagitis
CPT/HCPCS: 99214

== ENCOUNTER 2024-08-23 18:14 | Outpatient (REF) | payer OTHER, SELFPAY ==
--- NOTE | ~2024-08-23 | MR_ITS ---
EXAMINATION: MR KNEE WITHOUT CONTRAST RIGHT CLINICAL INFORMATION: Villonodular synovitis (pigmented), unspecified site M12.20. It has problem called PVNS started 3 weeks ago still the same to fall. COMPARISON: MR Right knee without contrast 06/24/2022. TECHNIQUE: MRI of the knee without contrast was performed using routine sequences on a high-field scanner. FINDINGS: MENISCI: Medial Meniscus: Intact. Lateral Meniscus: Intact. LIGAMENTS: Cruciate: Intact. Collateral: Intact. EXTENSOR MECHANISM: Intact. ARTICULAR CARTILAGE/BONE: Patellofemoral Compartment: Medial patellar facet articular cartilage signal heterogeneity and fibrillation, slightly progressed when compared to the prior examination. Medial Compartment: Intact articular cartilage. Lateral Compartment: Intact articular cartilage. JOINT FLUID AND BURSAE: Trace joint effusion. Lobulated areas of heterogeneous low T1/low T2 signal within a trace Valentin's cyst measuring up to 1.5 and 2.1 cm in craniocaudal dimension, slightly decreased in prominence when compared to the prior MRI. Additional, similar-appearing focus along the posterosuperior aspect of the medial femoral condyle measuring up to 2.7 cm in ML dimension, decreased in prominence when compared to the prior examination (previously 3.4 cm). No new or increasing areas of heterogeneous nodularity. Findings are consistent with reported history of PVNS. MR/MR knee RT wo con IMPRESSION: 1. Heterogeneous synovial foci as seen on the prior examination, slightly decreased in prominence and consistent with reported history of PVNS. No new or increasing disease burden. 2. Mild medial patellar facet arthrosis, slightly progressed. 3. No acute meniscal or ligamentous injury. Electronically signed by: Giles Mahoney MD 09/11/2024 09:37 AM EST
== END 2024-08-23 18:15 | disposition home or self-care (01) ==
LOC: HO.MRI 18:14
PROVIDERS: PCP Internal Medicine; Visit Provider Physician Assistant
DX: M12.261 Villonodular synovitis (pigmented), right knee (principal); M25.561 Pain in right knee
CPT/HCPCS: 73721

== ENCOUNTER 2024-11-08 14:04 | Outpatient (AMB) | payer OTHER, SELFPAY ==
--- NOTE | 2024-11-08 14:11 | A.OFFVIS_ITS ---
Vital Signs 11/08/24 14:18 Height 5 ft 6 in Weight 112 lb 6.972 oz BMI 18.1 BP 92/58 L Blood Pressure Location Rt brachial Position Sitting Pulse 88 Pulse Source Pulse Oximeter Pulse Oximetry (%) 98 Oxygen Delivery Method Room Air Intake Visit Reasons: 3 month follow up Intake Note: ESTABLISHED PATIENT for GERD + Dysphagia mgmt. BA [place] appt upcoming. Chief Complaint; Allergies No Known Allergies Allergy (Verified 11/08/24 14:12) HPI HPI 3 month follow up: Details: LAST VISIT: Weight loss Hiatal hernia Dysphagia GERD (gastroesophageal reflux disease) Plan Patient will go for modified barium swallow. His symptoms happening oropharyngeal more than esophageal. Had barium swallow done in July of 2023 that showed dysmotility of his esophagus as well as significant reflux. With this we might see reflux that is still not well controlled. Will have patient stop pantoprazole and start Nexium 40 mg. Avoid dietary triggers and late night snacking. Staying upright for minimum 3 hours after meals discussed with patient. Patient will be sent for allergen test. Denies having any allergies. Discussed with patient the importance of high-calorie meals. Patient will drink protein shakes in between meals. Follow-up in the office in 3 months, sooner on as needed basis. He is agreeable to this plan and verbalizes understanding of instructions. He was given the opportunity to ask questions and all questions answered. ? Thank you for allowing me to participate in his care Orders Orders FL Modified Barium Swallow Today R13.10 Rast Allergen Today K21.9 Medications New esomeprazole magnesium (Nexium) 40 mg PO DAILY 30 caps 5RF K21.9 Discontinued omeprazole Discontinued Reason: Doctor's Order 40 mg (2 x 20 mg) PO DAILY 30 days 60 caps 3RF K21.9 pantoprazole Discontinued Reason: Doctor's Order 40 mg PO DAILY 30 days 30 tabs 11RF TODAY'S VISIT: patient is here today for follow-up. He is accompanied by his mother. Patient reports that his symptoms are improved since he started taking Nexium. Patient has little bit more appetite and is not afraid to eat. Currently he is drinking protein shakes to help him gain weight. Patient denies any nausea or vomiting. Denies dyspepsia or odynophagia. He continues to have occasional dysphagia specially when he is swallowing solid food. Patient does admit that sometimes he does not chew food well. 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 Surgical History History of esophagogastroduodenoscopy (EGD) H/O right knee surgery Family History Mother High cholesterol Father High blood pressure Other Mental health problem Social History Housing: Condominium Alcohol intake: never Patient Tobacco Use Status: Never used Tobacco e-Cigarette/Vaping Use: Never Used Second Hand Smoke Exposure: No service: No Current occupational status: disabled Cognitive needs: No Hearing needs: No Vision needs: Yes (glasses) Review of Systems Const Denies weight gain and Denies weight loss ENT Reports no additional complaints, Reports dysphagia and Denies odynophagia Card Reports no additional complaints Resp Reports no additional complaints GI Denies abdominal pain, Denies belching, Denies melena, Denies bloating, Denies change in bowel habits, Reports dysphagia, Denies excessive flatus, Denies dyspepsia, Denies heartburn, Denies diarrhea, Denies loose stools, Denies nausea, Denies odynophagia and Denies vomiting Reports no additional complaints Musc Reports no additional complaints Neuro Reports no additional complaints Psych Reports no additional complaints Endo Reports no additional complaints Physical Exam Vital Signs: Last Vital Signs Pulse 88 11/08/24 14:18 BP 92/58 L 11/08/24 14:18 Pulse Ox 98 11/08/24 14:18 Oxygen Delivery Method Room Air 11/08/24 14:18 BMI result Body Mass Index 18.1 Const General: healthy appearing and no acute distress Nutritional Appearance: underweight Orientation/consciousness: patient oriented x3 Resp Effort & Inspection: normal respiratory effort, able to speak in complete sentences, no tracheal deviation and symmetric chest movement Auscultation: clear to auscultation bilaterally Cardio Rate: regular rate GI Inspection: Yes normal to inspection and No distended Palpation (GI): Soft to palpation, not firm, nontender and No hepatosplenomegaly present Auscultation: normal bowel sounds General: Yes no CVA tenderness Back/Spine/Pelvis Back: no CVA tenderness Skin General skin exam: elasticity normal, turgor normal and dry skin Neuro General: patient oriented x3 Psych Appearance: grossly normal Mental Status: mental status grossly normal Assessment & Plan Assessment & Plan (1) Weight loss: Code(s): R63.4 - Abnormal weight loss Category: Medical (2) Hiatal hernia: Code(s): K44.9 - Diaphragmatic hernia without obstruction or gangrene Category: Medical (3) Dysphagia: Code(s): R13.10 - Dysphagia, unspecified Category: Medical Qualifiers: Dysphagia type: unspecified Qualified Code(s): R13.10 - Dysphagia, unspecified (4) GERD (gastroesophageal reflux disease): Code(s): K21.9 - Gastro-esophageal reflux disease without esophagitis Category: Medical Qualifiers: Esophagitis presence: without esophagitis Qualified Code(s): K21.9 - Gastro-esophageal reflux disease without esophagitis Plan patient will continue taking Nexium daily. Continue with protein shakes. Barium swallow is scheduled for November. Patient was encouraged to avoid dietary triggers and late night snacking. Staying upright for minimum 3 hours after meals discussed with patient. Patient was encouraged to chew his food well and drink plenty fluids. Follow-up in 10 weeks, sooner on as needed basis. Patient is agreeable to this plan and verbalizes understanding of instructions. He was given the opportunity to ask questions and all questions answered. Thank you for allowing me to participate in his care Coding Level of Care Code Est Pt Level 4 (56085) Complex EM visit Add On G2211 Diagnoses Weight loss R63.4 Hiatal hernia K44.9 Dysphagia, unspecified type R13.10 Dysphagia type: unspecified Gastroesophageal reflux disease without esophagitis K21.9 Esophagitis presence: without esophagitis Time Spent (min) 35 Comment 25 minutes spent with patient and additional 10 minutes spent reviewing his records
[2024-11-08 14:18] VITALS: BP 92/58; PULSE 88; O2SAT 98; BMI 18.1
== END 2024-11-08 14:55 | disposition home or self-care (01) ==
LOC: HO.HGI 14:05
PROVIDERS: PCP Internal Medicine; Visit Provider Nurse Practitioner Family
DX: R63.4 Abnormal weight loss (principal); K44.9 Diaphragmatic hernia without obstruction or gangrene; R13.10 Dysphagia, unspecified; K21.9 Gastro-esophageal reflux disease without esophagitis
CPT/HCPCS: 99214; G2211

== ENCOUNTER → 2024-11-08 14:04 | Outpatient (BNVA) | payer OTHER, SELFPAY | PROVIDERS: PCP Internal Medicine; Visit Provider Nurse Practitioner Family | DX: K21.9 Gastro-esophageal reflux disease without esophagitis (principal); R13.10 Dysphagia, unspecified; R63.4 Abnormal weight loss; K44.9 Diaphragmatic hernia without obstruction or gangrene | CPT/HCPCS: 99212 ==

== ENCOUNTER 2024-12-03 14:14 | Outpatient (REF) | payer OTHER, SELFPAY ==
--- NOTE | ~2024-12-03 | FL_ITS ---
EXAMINATION: XR BARIUM SWALLOW CLINICAL INFORMATION: Dysphagia COMPARISON: None available. TECHNIQUE: Routine modified barium swallow was performed with various consistencies of food coated with barium in the lateral fluoroscopy position. FINDINGS: An oral administration of thin, thick barium, barium coated nectar, pudding, solids and cracker's and honey consistency . There is normal propagation of bolus through the pharynx, esophagus into upper esophagus without any evidence of obstruction, narrowing or stricture. No laryngeal penetration or aspiration seen. No retention of barium seen in the valleculae or piriform sinuses.. FLUOROSCOPY TIME: 44 seconds DOSE AREA PRODUCT: 140.0 uGy-m2 (microgray-meter squared) FL/FL Modified Barium Swallow IMPRESSION: Unremarkable barium swallow exam. Electronically signed by: Darrin Quinn MD 12/03/2024 03:28 PM EDT
--- NOTE | 2024-12-03 16:52 | MHC.SL.IMP ---
Date of Plan of Treatment: 12/03/24 Onset of Symptoms/Illness: 11/08/24 Date Treatment Started: 12/03/24 Admitting Diagnosis: Dysphagia Primary Speech & Language Diagnosis: R13.10 Dysphagia Reason for Today's Visit: 82473 Modified Barium Swallow Study Pre-evaluation Dietary Consistencies: Regular Pre-evaluation Liquid Consistency: Thin Pre-evaluation Medication Administration: Whole with Liquid Medical History: Modified Barium Swallow Study Fluoroscopic Evaluation of Swallowing Function CPT Code 36244 Evaluation Year: 2024 Reason for Study: Patient reporting difficulty swallowing. 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 office. Patient reports occasional dysphagia with solids, admitting that he does not chew well. Patient today endorsed feeling like his ?swallow gets stuck.? Patient denies coughing or choking upon swallowing. He did have a barium swallow as noted per [facility] in July 2023, with dysmotility of the esophagus and significant reflux. Patient was recommended to remain upright for a minimum of 3 hours after eating. Oral Motor Exam Facial Symmetry: Symmetrical Mouth Occlusion: Normal Oral-Facial Teeth Characteristics: Intact/Normal Oral-Facial Teeth Miscellaneous Observation: Adequate natural dentition for mastication Oral-Facial Lip Pucker Description: Normal Oral-Facial Smile (Lips) Description: Normal Oral-Facial Puff Cheeks Description: Normal Tongue Size: Normal Tongue Excursion Description: Normal Tongue Range of Movement Description: Normal Tongue Speed of Movement Description: Normal Tongue Strength of Movement (against opposing pressure): Normal Tongue Movement Characteristics: Normal/Absent Is patient able to manage secretions?: Yes Is patient able to produce volitional cough?: Yes Food and Liquid Trials: Oral Impairment: Lip Closure: Did not test Oral Impairment: Tongue Control During Bolus Hold: 1=Escape to lateral buccal cavity/floor of mouth (FOM) Oral Impairment: Bolus Preparation/Mastication: 0=Timely and efficient chewing and mashing Oral Impairment: Bolus Transport/Lingual Motion: 0=Brisk tongue motion Oral Impairment: Oral Residue: 1=Trace residue lining oral structures Oral Impairment:Initiation of Pharyngeal Swallow: 1=Bolus head in valleculae Pharyngeal Impairment: Soft Palate Elevation: 0=No bolus between soft palate (SP)/pharyngeal wall (PW) Pharyngeal Impairment: Laryngeal Elevation: 0=Complete superior movement of thyroid cartilage (see description) Pharyngeal Impairment: Anterior Hyoid Excursion: 0=Complete anterior movement Pharyngeal Impairment: Epiglottic Movement: 0=Complete inversion Pharyngeal Impairment: Laryngeal Vestibular Closure:: 0=Complete: no air/contrast in laryngeal vestibule Pharyngeal Impairment: Pharyngeal Stripping Wave: 0=Present: complete Pharyngeal Impairment: Pharyngeal Contraction: Did not test Pharyngeal Impairment: Pharyngoesophageal Segment Openin=Partial distention/partial duration: partial obstruction of flow Pharyngeal Impairment: Tongue Base (TB) Retraction: 1=Trace column of contrast/air between TB and posterior PW Pharyngeal Impairment: Pharyngeal Residue: 1=Trace residue within or on pharyngeal structures Pharyngeal Impairment: Esophageal Clearance Upright Position: Did not test Impressions and Recommendations Clinical Observations: OBJECTIVE: Time-out: performed at 14:45 Evaluation Start: 14:30; Stop: 14:40 Patient Positioning: Standing Viewing Planes: LATERAL ONLY Contrast: MBSImP? Standardized Protocol using commercially prepared, standardized Barium viscosities, including: Varibar? THIN LIQUID (40% w/v, <15 cps) , Varibar? PUDDING (40% w/v, <7732-7889 cps) , 1/2 Shortbread Cookie (1 x1 x.25 ) MBSImP ID: [id number] MBSImP Results: Lip closure for intraoral bolus containment could not be assessed due to logistical reasons not related to physiologic impairment. Tongue control during bolus hold allowed bolus escape to the lateral buccal cavity/floor of mouth. Bolus preparation and mastication resulted in timely and efficient chewing and mashing. Bolus transport/lingual motion was with brisk tongue motion. Oral residue was a trace, lining oral structures. Initiation of the pharyngeal swallow occurred when the bolus head was in the valleculae. Soft palate elevation resulted in no bolus between the soft palate and the pharyngeal wall. Laryngeal elevation demonstrated complete superior movement of the thyroid cartilage with complete approximation of the arytenoids to the epiglottic petiole. Anterior hyoid excursion demonstrated complete anterior movement. Epiglottic movement resulted in complete inversion. Laryngeal vestibular closure was complete, as indicated by no air or contrast within the laryngeal vestibule at the height of the swallow. Pharyngeal stripping wave was present and complete. Pharyngeal contraction could not be determined due to logistical reasons not related to physiologic impairment. Pharyngoesophageal segment opening was completely distended for complete duration with no obstruction of bolus flow. Tongue base retraction allowed a trace column of contrast or air between the retracted tongue base and the posterior pharyngeal wall. Pharyngeal residue was a trace within or on pharyngeal structures. Esophageal clearance in the upright position could not be assessed due to logistical reasons not related to physiologic impairment. Oral Impairment Score: 2 (absence of score, component 1) Pharyngeal Impairment Score: 0 (absence of score, component 13) Esophageal Impairment Score: --- (absence of score, component 17) Laryngeal Penetration and Aspiration: Neither penetration nor aspiration was observed in today's study with Cookie, Pudding-thick, Thin. ASSESSMENT: Clinician Assessment: This exam was conducted by the radiologist and the speech pathologist. Patient was standing for lateral view only. He fed himself without difficulty and trialed thin, puree, and regular solid consistencies. Some contrast escaped to the floor of mouth, but there was no premature posterior spillage. Mastication was timely and efficient. Brisk and timely posterior lingual motion. Trace lingual residue subsequently cleared. Pharyngeal swallow trigger initiated as the bolus head reached the valleculae. No evidence of nasopharyngeal reflux. Complete laryngeal elevation with complete epiglottic inversion and complete laryngeal vestibular closure. No evidence of penetration or aspiration during this exam. Trace contrast collected in the valleculae and pyriforms and subsequently cleared. Liquid Intake Recommendation: Thin Liquid Intake Strategies: Unrestricted Dietary Recommendations: Regular Medication Administration: Whole with Liquid Please contact the pharmacy regarding appropriate crushable or liquid drug formulations that are available whenever modified delivery is recommended. Compensatory Strategies Recommended: Supervision during eating and or drinking: None Needed Recommendation for Speech Therapy: NA:Typical Evaluation Text Comment: Intake Recommendations: Route: PO Diet Grade: Regular Liquid Consistencies: Thin Post-Study Functional Oral Intake Scale (FOIS): 7- Total oral intake with no restrictions No evidence of aspiration or penetration. Good oral and pharyngeal clearance. Therapy Recommendations: Overall unremarkable exam. Further ST intervention is no longer warranted. Patient to continue workup w/ [facility] Clinician - Supplemental, Miscellaneous Communication: It is important to note MBSS objective studies are snapshots in time and Patient function might vary with factors such as time of day or concomitant medical conditions. For this reason, the final treatment plan for this patient should rest with their medical care team. Additional recommendations should be considered with the totality of the Patient in mind. Thank for the opportunity to participate in the care of this patient. If you have any questions about the content of this report, please contact the [facility]. Education: Education regarding findings from today's study and plans for therapy were provided to Patient only through Verbal Instruction. Understanding was expressed by the Patient only. Multi Operation Forming Machine Setter Clinician/Clinical Fellow: No Supervisory Statement: N/A Speech Language Pathologist: Gail Ewing M.A., [facility]-SENIOR OCCUPATIONAL THERAPIST
== END 2024-12-03 14:15 | disposition home or self-care (01) ==
LOC: HO.XRAY 14:14
PROVIDERS: PCP Internal Medicine; Visit Provider Nurse Practitioner Family
DX: R13.10 Dysphagia, unspecified (principal)
CPT/HCPCS: 74230; 92611

== ENCOUNTER → 2024-12-03 14:30 | Outpatient (BNV) | payer OTHER, SELFPAY | PROVIDERS: PCP Internal Medicine; Visit Provider Radiology Diagnostic Radiology | DX: R13.10 Dysphagia, unspecified (principal) | CPT/HCPCS: 74230 ==

== ENCOUNTER 2025-01-16 08:59 | Outpatient (REF) | payer OTHER, SELFPAY ==
[2025-01-16 10:23] LABS: MANUAL DIFF FLAG NO
[2025-01-16 10:35] LABS: Basophils Absolute Auto 0.1 X10*3/uL (0.0-0.2); Basophils Percent Auto 1.2 % (0-2); Eosinophils Absolute Auto 0.1 X10*3/uL (0.0-0.4); Eosinophils Percent Auto 1.4 % (0-4); Hematocrit 43.1 % (42.0-52.0); Hemoglobin 15.3 g/dl (14.0-18.0); Imm Gran Abs Auto 0.01 X10*3/uL (0.00-0.03); Imm Gran Pct Auto 0.2 % (0.0-0.4); Lymphocytes Absolute Auto 1.2 X10*3/uL (1.2-4.9); Lymphocytes Percent Auto 23.6 % (20-40); Mean Corpuscular HGB Conc 35.5 g/dl (31.0-36.0); Mean Corpuscular Hemoglobin 30.5 pg (27.0-33.0); Mean Platelet Volume 9.5 fL (9.4-12.4); Monocytes Absolute Auto 0.5 X10*3/uL (0.1-1.2); Monocytes Percent Auto 10.2 % (2-11); Neutrophils Absolute Auto 3.1 x10*3/uL (2.0-8.3); Neutrophils Percent Auto 63.4 % (45-73); Platelet Count 222 X10*3/uL (160-400); Red Blood Count 5.01 X10*6/uL (4.60-5.80); White Blood Count 4.9 X10*3/uL (4.8-10.8)
[2025-01-16 11:01] LABS: Appearance Urine Clear; Color Urine Yellow; Glucose Urine UA Negative (Negative); Leukocyte Esterase Urine Negative (Negative); Nitrite Urine Negative (Negative); PH 7.5 (5.0-9.0); Urine Blood Negative (Negative); Urine Ketones Negative (Negative); Urine Protein Negative (Neg-Trace)
[2025-01-16 11:25] LABS: Alanine Aminotransferase 21 U/L (0-40); Albumin Level 4.8 g/dL (3.5-5.0); Alkaline Phosphatase 58 U/L (39-117); Anion Gap 10 (12-20); Aspartate Amino Transferase 22 U/L (5-37); Bilirubin Direct 0.2 mg/dL (0.0-0.5); Bilirubin Total 0.7 mg/dL (0.0-1.0); Blood Urea Nitrogen 10 mg/dL (9-16); Calcium 9.4 mg/dL (8.4-10.2); Carbon Dioxide 28 mmol/L (22-29); Chloride 108 mmol/L (96-108); Cholesterol 194 mg/dL (<200); Estimated Glomerular Filt Rate > 60; Glucose Random 81 mg/dL (60-115); Potassium 4.2 mmol/L (3.3-5.1); Sodium 142 mmol/L (135-145); Total Protein 7.2 g/dL (6.5-8.0)
[2025-01-16 11:33] LABS: TSH reflex Free T4 0.96 uIU/mL (0.32-4.0)
== END 2025-01-16 09:00 | disposition home or self-care (01) ==
LOC: HO.LAB 08:59
PROVIDERS: PCP Internal Medicine; Visit Provider Internal Medicine
DX: Z00.00 Encounter for general adult medical examination without abnormal findings (principal); M12.20 Villonodular synovitis (pigmented), unspecified site; R13.10 Dysphagia, unspecified; F94.0 Selective mutism; R30.0 Dysuria; E55.9 Vitamin D deficiency, unspecified; R79.89 Other specified abnormal findings of blood chemistry; D64.9 Anemia, unspecified; E78.00 Pure hypercholesterolemia, unspecified
CPT/HCPCS: 36415; 80053; 81003; 82248; 82306; 82465; 84443; 85025; 96127; 99395

== ENCOUNTER 2025-01-16 08:59 | Outpatient (AMB) | payer OTHER, SELFPAY ==
[2025-01-16 09:05] VITALS: BP 100/62; PULSE 77; O2SAT 98; BMI 17.3
--- NOTE | 2025-01-16 09:05 | A.OFFPC_ITS ---
Vital Signs 01/16/25 09:05 Height 5 ft 6 in Weight 107 lb BMI 17.3 BP 100/62 Blood Pressure Location Lt brachial Position Sitting Pulse 77 Pulse Source Pulse Oximeter Pulse Oximetry (%) 98 Oxygen Delivery Method Room Air Intake Visit Reasons: pe Per Diem Interpreter Required: No Accompanied by: Self / Same As Patient Allergies No Known Allergies Allergy (Verified 01/16/25 09:54) Medication List - Last Reconciled 01/16/25 by Wolf Willett MD esomeprazole magnesium (Nexium) 40 mg PO DAILY Tobacco use date assessed: 01/16/25 Dental Screening Dental Screen Date: 01/16/25 Did you have a dental visit in the last 12 months?: Yes Did you have a dental problem in the last 6 months where you did not have access to dental care?: No Was dental information given to patient?: Patient has dentist HPI pe HPI Details Patient comes in today for his annual physical examination States that he continues to experience difficulty swallowing, mostly to solids His initial barium swallow done in July 2023 revealed (+) small type I hiatal hernia and significant gastroesophageal reflux as well as some degree of esophageal motility His Pantoprazole was switched over to Esomeprazole by GI a couple of months ago Modified barium swallow done last month came out normal Patient states that he feels okay otherwise He denies any headaches or dizziness Denies any chest pains, no SOB No nausea/vomiting, no abdominal pain No change in bowel habits noted Denies any acute urinary symptoms [facility] Medical History Synovial cyst of right knee 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 1. Little interest or pleasure in doing things: not at all 2. Feeling down, depressed, or hopeless: not at all 3. Trouble falling or staying asleep, or sleeping too much: not at all 4. Feeling tired or having little energy: several days 5. Poor appetite or overeating: not at all 6. Feeling bad about yourself - or that you are a failure or have let yourself or your family down: not at all 7. Trouble concentrating on things, such as reading the newspaper or watching television: several days 8. Moving or speaking so slowly that other people could have noticed. Or the opposite - being so fidgety or restless that you have been moving around a lot more than usual: not at all 9. Thoughts that you would be better off or of hurting yourself in some way: not at all Total score: 2 Depression Screening Interpretation: Negative Depression Screening Done: Yes 89882 - PHQ-9 Billing: Yes Source: Developed by Drs. Juanito Mederos, Dania Anglin, Josias Melara and colleagues, with an educational veronica from [employer]. Thrive Questionnaire Date Thrive assessed: 01/16/25 I am a: Patient What is your living situation today?: I have a steady place to live Within the past 12 months, did the food you bought not last and you didn't have the money to get more?: Never true Within the past 12 months, did you worry whether your food would run out before you got money to buy more?: Never true Do you have trouble paying for medicines?: No Do you have trouble getting transportation to medical appointments?: No Do you have trouble paying your heating and electricity bill?: No Do you have trouble taking care of your child, family member or friend?: No Do you have trouble with day-to-day activities such as bathing, preparing meals, shopping, managing finances, etc.?: No Are you currently unemployed and looking for a job?: No Are you interested in more education?: I choose not to answer this question Please select the resources that you would like help with: None Currently or been in a relationship where the following occur: No concerns reported THRIVE Score: 0 AUDIT C Alcohol Use Questionnaire (AUDIT-C) 1. How often do you have a drink containing alcohol?: Never 3. How often do you have six or more drinks on one occasion?: Never Total Score: 0 Score Reviewed/Action Taken: Yes YAHIR-7 AMB Questionnaire YAHIR-7 Date YAHIR - 7 assessed: 01/16/25 Feeling nervous, anxious, or on edge: 1 = Several days Not being able to stop or control worryin = Not at all Worrying too much about different things: 0 = Not at all Trouble relaxin = Several days Being so restless that it is hard to sit still: 0 = Not at all Becoming easily annoyed or irritable: 0 = Not at all Feeling afraid as if something awful might happen: 0 = Not at all Total YAHIR-7 score (0-4 normal; 5-9 mild; 10-14 moderate; 15-21 severe): 2 Source: Developed by Drs. Juanito Mederos, Dania Anglin, Josias Melara and colleagues, with an educational veronica from [employer]. Review of Systems Const Denies chills, Denies fatigue, Denies fever(s), Denies headache(s), Denies malaise and Denies weakness Eyes Denies blurry vision, Denies change in vision, Denies irritation and Denies itchy eyes ENT Reports dysphagia (mostly to solid foods), Denies dizziness, Denies otalgia, Denies headache(s), Denies nasal congestion, Denies neck pain, Denies odynophagia and Denies sore throat Card Denies chest pain, Denies rapid heart rate, Denies irregular heart rhythm, Denies palpitations and Denies dyspnea Resp Denies chest congestion, Denies cough, Denies dyspnea and Denies wheezing GI Denies abdominal pain, Denies bloating, Denies constipation, Reports dysphagia (mostly to solid foods), Denies heartburn, Denies diarrhea, Denies nausea, Denies odynophagia and Denies vomiting Denies hematuria, Denies difficulty urinating, Denies dysuria, Denies urinary frequency and Denies urinary urgency Musc Denies back pain, Denies arthralgias, Denies joint swelling, Denies muscle weakness and Denies neck pain Skin/Breast Denies change in pigmentation, Denies lesions, Denies rash and Denies unusual bruising Neuro Denies dizziness, Denies headache(s), Denies paresthesias and Denies weakness Endo Denies fatigue and Denies palpitations Aller/Immun Denies itchy eyes and Denies wheezing Physical exam (Primary Care) Vital Signs: Last Vital Signs Pulse 77 01/16/25 09:05 BP 100/62 01/16/25 09:05 Pulse Ox 98 01/16/25 09:05 Oxygen Delivery Method Room Air 01/16/25 09:05 BMI result Body Mass Index 17.3 Tobacco/Smoking Status: Tobacco use Status Tobacco use date assessed 01/16/25 01/16/25 09:11 Patient Tobacco Use Status Never used Tobacco 01/16/25 09:11 e-Cigarette/Vaping Use Never Used 01/16/25 09:11 PHQ-9: PHQ-9 Score PHQ-9: Total score 2 01/16/25 09:11 Depression Screening Interpretation: Negative Thrive Assessment: Date of Thrive Assessment Date Thrive assessed 01/16/25 01/16/25 09:11 Currently or been in a relationship where the following occur: No concerns reported Const General: no acute distress, alert and awake Orientation/consciousness: patient oriented x3 HENMT Head: Yes normocephalic and Yes atraumatic Ears: external ears normal, TM's normal bilaterally and EAC's normal General nose exam: No nasal discharge present Face and sinus: Yes normal facial exam and Yes sinuses nontender Teeth and gingiva: dentition normal Throat: Yes posterior oropharynx normal and Yes tonsils normal (no TP congestion) Eyes Eyelids: Yes eyelids normal Conjunctivae: conjunctivae normal Pupils: Equal, round and reactive pupils present EOM: EOMs intact bilaterally Neck Neck: Yes supple and No lymphadenopathy Thyroid: Thyroid normal Resp Auscultation: clear to auscultation bilaterally, no rales and no wheezes Cardio Rate: regular rate Rhythm: regular rhythm Heart sounds: no murmurs GI Palpation (GI): Soft to palpation, nontender and No hepatosplenomegaly present Auscultation: normal bowel sounds General: Yes no CVA tenderness Back/Spine/Pelvis Back: no CVA tenderness Thoracic/Lumbar Spine: thoracic and lumbar spine normal to inspection Skin Lesions: no lesions Rashes: no rashes Neuro General: patient oriented x3, moves all extremities, no focal motor deficits and CN's II-XI intact bilaterally Cranial nerves: Yes Equal, round and reactive pupils present Cognition (Neuro): normal cognition Gait exam (Neuro): Normal gait present Extrem General: Yes no clubbing, cyanosis or edema Coding Level of Care Code Est Pt Prev Care 18-39y(19258) Diagnoses Annual physical exam Z00. PVNS (pigmented villonodular synovitis) M12.20 Dysphagia, unspecified type R13.10 Dysphagia type: unspecified Selective mutism F94.0 Additional Codes PHQ-9 - 45713 - PHQ-9 Billing: Yes ([id number]) Assessment & Plan Assessment & Plan (1) Annual physical exam: Code(s): Z00.00 - Encounter for general adult medical examination without abnormal findings Category: Medical Plan: Check labs (2) PVNS (pigmented villonodular synovitis): Code(s): M12.20 - Villonodular synovitis (pigmented), unspecified site Category: Medical Plan: S/P knee arthroplasty at [facility] back in 2016 Follow up with orthopedics as scheduled; he also sees a specialist for his knee at [facility] regularly for follow up (3) Dysphagia: Code(s): R13.10 - Dysphagia, unspecified Category: Medical Qualifiers: Dysphagia type: unspecified Qualified Code(s): R13.10 - Dysphagia, unspecified Plan: His initial barium swallow done in July 2023 revealed (+) small type I hiatal hernia and significant gastroesophageal reflux as well as some degree of esophageal motility His Pantoprazole was switched over to Esomeprazole by GI a couple of months ago Modified barium swallow done last month came out normal Follow up with GI as scheduled - he has an appointment scheduled in a couple of days (4) 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 Category: Medical Plan: Follow up with psychiatry as scheduled Plan To return in 1 year for his next annual physical examination Orders: Orders Comprehensive Met. Panel Today Z00.00 - Encounter for general adult medical examination without abnormal findings UA CC w/rflx Micro + Cult Today R30.0 - Dysuria, Z00.00 - Encounter for general adult medical examination without abnormal findings Vitamin D 25-OH Total Today E55.9 - Vitamin D deficiency, unspecified, Z00.00 - Encounter for general adult medical examination without abnormal findings Complete Blood Count Auto Diff Today D64.9 - Anemia, unspecified, Z00.00 - Encounter for general adult medical examination without abnormal findings Liver Panel Today R79.89 - Other specified abnormal findings of blood chemistry, Z00.00 - Encounter for general adult medical examination without abnormal findings TSH reflex Free T4 Today E78.00 - Pure hypercholesterolemia, unspecified, Z00.00 - Encounter for general adult medical examination without abnormal findings Cholesterol Today Z00.00 - Encounter for general adult medical examination without abnormal findings
== END 2025-01-16 10:05 | disposition home or self-care (01) ==
LOC: HO.HMCH 09:00
PROVIDERS: PCP Internal Medicine; Visit Provider Internal Medicine
DX: Z00.00 Encounter for general adult medical examination without abnormal findings (principal); M12.20 Villonodular synovitis (pigmented), unspecified site; R13.10 Dysphagia, unspecified; F94.0 Selective mutism

== ENCOUNTER 2025-01-18 11:18 | Outpatient (AMB) | payer OTHER, SELFPAY ==
--- NOTE | 2025-01-18 11:27 | A.OFFVIS_ITS ---
Vital Signs 01/18/25 11:28 Height 5 ft 6 in Weight 107 lb BMI 17.3 BP 94/48 L Blood Pressure Location Lt brachial Position Sitting Pulse 78 Pulse Source Pulse Oximeter Pulse Oximetry (%) 100 Oxygen Delivery Method Room Air Intake Visit Reasons: Follow up visit Intake Note: ESTABLISHED PATIENT for mgmt of GERD + dysphagia. CC; C.O. persistence of GERD + dysphagia despite tx. Pt states that their sx have not improved with the Rx. Denies any new sx or concerns. No abd pain at this time. Motor Rebuilder Required: No Accompanied by: Mother Allergies No Known Allergies Allergy (Verified 01/18/25 11:32) HPI HPI Follow up visit: Details: LAST VISIT: Weight loss Hiatal hernia Dysphagia GERD (gastroesophageal reflux disease) Plan patient will continue taking Nexium daily. Continue with protein shakes. Barium swallow is scheduled for November. Patient was encouraged to avoid dietary triggers and late night snacking. Staying upright for minimum 3 hours after meals discuss ed with patient. Patient was encouraged to chew his food well and drink plenty fluids. Follow-up in 10 weeks, sooner on as needed basis. Patient is agreeable to this plan and verbalizes understanding of instructions. He was given the opportunity to ask questions and all questions answered. TODAY'S VISIT Patient is here today for follow-up and to discuss modified barium swallow results. Patient is accompanied by his mother. Patient still reports trouble swallowing although during modified barium swallow speech therapy notes report normal propagation of food and no choking episodes or no trouble swallowing liquids or solids. Currently patient is taking esomeprazole daily. Patient denies any choking episodes. Reports that he is chewing his food well. Denies dyspepsia or odynophagia. Patient's mother reports that he is very picky with his food. Has not followed up with dietitian yet. Patient denies any other GI concerning symptoms ? 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 Surgical History History of esophagogastroduodenoscopy (EGD) H/O right knee surgery Family History Mother High cholesterol Father High blood pressure Other Mental health problem Social History Housing: Condominium Alcohol intake: never Patient Tobacco Use Status: Never used Tobacco e-Cigarette/Vaping Use: Never Used Second Hand Smoke Exposure: No service: No Current occupational status: disabled Cognitive needs: No Hearing needs: No Vision needs: Yes (glasses) Review of Systems Const Denies weight gain and Denies weight loss ENT Reports no additional complaints, Reports dysphagia and Denies odynophagia Card Reports no additional complaints Resp Reports no additional complaints GI Denies abdominal pain, Denies belching, Denies melena, Denies bloating, Denies change in bowel habits, Reports dysphagia, Denies excessive flatus, Denies dyspepsia, Denies heartburn, Denies diarrhea, Denies loose stools, Denies nausea, Denies odynophagia and Denies vomiting Reports no additional complaints Musc Reports no additional complaints Neuro Reports no additional complaints Psych Reports no additional complaints Endo Reports no additional complaints Physical Exam Vital Signs: Last Vital Signs Pulse 78 01/18/25 11:28 BP 94/48 L 01/18/25 11:28 Pulse Ox 100 01/18/25 11:28 Oxygen Delivery Method Room Air 01/18/25 11:28 BMI result Body Mass Index 17.3 Const General: healthy appearing and no acute distress Nutritional Appearance: underweight Orientation/consciousness: patient oriented x3 Resp Effort & Inspection: normal respiratory effort, able to speak in complete sentences, no tracheal deviation and symmetric chest movement Auscultation: clear to auscultation bilaterally Cardio Rate: regular rate GI Inspection: Yes normal to inspection and No distended Palpation (GI): Soft to palpation, not firm, nontender and No hepatosplenomegaly present Auscultation: normal bowel sounds General: Yes no CVA tenderness Back/Spine/Pelvis Back: no CVA tenderness Skin General skin exam: elasticity normal, turgor normal and dry skin Neuro General: patient oriented x3 Psych Appearance: grossly normal Mental Status: mental status grossly normal Results Reviewed Results Reviewed: BARIUM SWALLOW FINDINGS: An oral administration of thin, thick barium, barium coated nectar, pudding, solids and cracker's and honey consistency . There is normal propagation of bolus through the pharynx, esophagus into upper esophagus without any evidence of obstruction, narrowing or stricture. No laryngeal penetration or aspiration seen. No retention of barium seen in the valleculae or piriform sinuses.. Assessment & Plan Assessment & Plan (1) Weight loss: Code(s): R63.4 - Abnormal weight loss Category: Medical (2) Dysphagia: Code(s): R13.10 - Dysphagia, unspecified Category: Medical Qualifiers: Dysphagia type: unspecified Qualified Code(s): R13.10 - Dysphagia, unspecified (3) GERD (gastroesophageal reflux disease): Code(s): K21.9 - Gastro-esophageal reflux disease without esophagitis Category: Medical Qualifiers: Esophagitis presence: without esophagitis Qualified Code(s): K21.9 - Gastro-esophageal reflux disease without esophagitis Plan Patient had normal modified barium swallow. Patient was encouraged to chew his food well and drink fluids with every bite. Patient will continue taking Nexium. Patient was encouraged to make a list of food that he likes and increase protein intake. Avoid dietary triggers and late night snacking. Staying upright for minimum 3 hours after meals discussed with patient. Patient will follow-up in 3 months, sooner on as needed basis. He is agreeable to this plan and verbalizes understanding of instructions. He was given the opportunity to ask questions and all questions answered. Thank you for allowing me to participate in his care Medications: Refilled esomeprazole magnesium (Nexium) 40 mg PO DAILY 90 caps 2RF K21.9 - Gastro- esophageal reflux disease without esophagitis Coding Level of Care Code Est Pt Level 3 (33112) Diagnoses Weight loss R63.4 Dysphagia, unspecified type R13.10 Dysphagia type: unspecified Gastroesophageal reflux disease without esophagitis K21.9 Esophagitis presence: without esophagitis Time Spent (min) 25 Comment 15 minutes spent with patient and additional 10 minutes spent reviewing his records
[2025-01-18 11:28] VITALS: BP 94/48; PULSE 78; O2SAT 100; BMI 17.3
== END 2025-01-18 12:06 | disposition home or self-care (01) ==
LOC: HO.HGI 11:18
PROVIDERS: PCP Internal Medicine; Visit Provider Nurse Practitioner Family
DX: R63.4 Abnormal weight loss (principal); R13.10 Dysphagia, unspecified; K21.9 Gastro-esophageal reflux disease without esophagitis
CPT/HCPCS: 99213

== ENCOUNTER → 2025-01-18 11:18 | Outpatient (BNVA) | payer OTHER, SELFPAY | PROVIDERS: PCP Internal Medicine; Visit Provider Nurse Practitioner Family | DX: K21.9 Gastro-esophageal reflux disease without esophagitis (principal); R13.10 Dysphagia, unspecified; R63.4 Abnormal weight loss | CPT/HCPCS: 99212 ==

== ENCOUNTER 2025-04-22 14:28 | Outpatient (AMB) | payer OTHER, SELFPAY ==
--- NOTE | 2025-04-22 14:40 | MHC.OFFVIS ---
Vital Signs 04/22/25 14:46 Height 5 ft 6 in Weight 107 lb BMI 17.3 BP 94/56 L Blood Pressure Location Lt brachial Position Sitting Pulse 84 Pulse Source Pulse Oximeter Pulse Oximetry (%) 100 Oxygen Delivery Method Room Air Intake Visit Reasons: 3m Intake Note: ESTABLISHED PATIENT for GERD + Dysphagia mgmt. Chief Complaint; Pt denies any GI changes or new sx since last visit. 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 Patient was encouraged to chew his food well and drink fluids with every bite. Patient will continue taking Nexium. Patient was encouraged to make a list of food that he likes and increase protein intake. Avoid dietary triggers and late night snacking. Staying upright for minimum 3 hours after meals discussed with patient. Patient will follow-up in 3 months, sooner on as needed basis. He is agreeable to this plan and verbalizes understanding of instructions. He was given the opportunity to ask questions and all questions answered. ? Thank you for allowing me to participate in his care Refilled esomeprazole magnesium (Nexium) 40 mg PO DAILY 90 caps 2RF K21.9 TODAY'S VISIT Patient is here today for follow-up. Patient is accompanied by his mother. Patient reports to be feeling fairly well. Still occasional trouble swallowing specially food that is dry or solid. No trouble swallowing liquid. Patient feels like he has trouble with lactose in particularly with cheese. Sometimes he does well with cheese and sometimes he has acid reflux and epigastric pain when he eats macaroni and she has. We have done RAST allergen testing and patient is not allergic to anything. We discussed with both him and his mom about possible sensitivity. Patient reports occasional dyspepsia. Patient made a list of food that he likes. We have discussed today that we will be going over low FODMAP diet as well as diet that can help him gain weight. 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 He will work on it himself. 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 Surgical History History of esophagogastroduodenoscopy (EGD) H/O right knee surgery Family History Mother High cholesterol Father High blood pressure Other Mental health problem Social History Housing: Condominium Alcohol intake: never Patient Tobacco Use Status: Never used Tobacco e-Cigarette/Vaping Use: Never Used Second Hand Smoke Exposure: No service: No Current occupational status: disabled Cognitive needs: No Hearing needs: No Vision needs: Yes (glasses) Review of Systems Const Denies weight gain and Denies weight loss ENT Reports no additional complaints, Reports dysphagia and Denies odynophagia Card Reports no additional complaints Resp Reports no additional complaints GI Denies abdominal pain, Denies belching, Denies melena, Denies bloating, Denies change in bowel habits, Reports dysphagia, Denies excessive flatus, Denies dyspepsia, Denies heartburn, Denies diarrhea, Denies loose stools, Denies nausea, Denies odynophagia and Denies vomiting Reports no additional complaints Musc Reports no additional complaints Neuro Reports no additional complaints Psych Reports no additional complaints Endo Reports no additional complaints Physical Exam Vital Signs: Last Vital Signs Pulse 84 04/22/25 14:46 BP 94/56 L 04/22/25 14:46 Pulse Ox 100 04/22/25 14:46 Oxygen Delivery Method Room Air 04/22/25 14:46 BMI result Body Mass Index 17.3 Const General: healthy appearing and no acute distress Nutritional Appearance: underweight Orientation/consciousness: patient oriented x3 Resp Effort & Inspection: normal respiratory effort, able to speak in complete sentences, no tracheal deviation and symmetric chest movement Auscultation: clear to auscultation bilaterally Cardio Rate: regular rate GI Inspection: Yes normal to inspection and No distended Palpation (GI): Soft to palpation, not firm, nontender and No hepatosplenomegaly present Auscultation: normal bowel sounds General: Yes no CVA tenderness Back/Spine/Pelvis Back: no CVA tenderness Skin General skin exam: elasticity normal, turgor normal and dry skin Neuro General: patient oriented x3 Psych Appearance: grossly normal Mental Status: mental status grossly normal Assessment & Plan Assessment & Plan (1) GERD (gastroesophageal reflux disease): Code(s): K21.9 - Gastro-esophageal reflux disease without esophagitis Category: Medical Qualifiers: Esophagitis presence: without esophagitis Qualified Code(s): K21.9 - Gastro-esophageal reflux disease without esophagitis (2) Difficulty swallowing: Code(s): R13.10 - Dysphagia, unspecified Category: Medical Qualifiers: Dysphagia type: pharyngoesophageal phase Qualified Code(s): R13.14 - Dysphagia, pharyngoesophageal phase (3) Dysphagia: Code(s): R13.10 - Dysphagia, unspecified Category: Medical Qualifiers: Dysphagia type: unspecified Qualified Code(s): R13.10 - Dysphagia, unspecified (4) IBS (irritable bowel syndrome): Code(s): K58.9 - Irritable bowel syndrome, unspecified Category: Medical Qualifiers: Irritable bowel syndrome type: without diarrhea Qualified Code(s): K58.9 - Irritable bowel syndrome, unspecified Plan Patient was encouraged to chew his food and drink with each bite. Continue low FODMAP diet, continue avoiding milk and even gluten. Try gluten free pasta and gluten free bread. High-calorie diet discussed with patient. Handout given to patient on how to prepare high-calorie meals and shakes. He will continue taking Nexium. Avoid dietary triggers and like that snacking. Staying upright for minimum 3 hours after meals discussed with patient. He will return in three months, sooner on as needed basis. Both patient and his mom are agreeable to plan of care and verbalizes understanding of instructions. They were given the opportunity to ask questions and all questions answered. Thank you for allowing me to participate in his care Coding Level of Care Code Est Pt Level 4 (18650) Complex EM visit Add On G2211 Diagnoses Gastroesophageal reflux disease without esophagitis K21.9 Esophagitis presence: without esophagitis Pharyngoesophageal dysphagia R13.14 Dysphagia type: pharyngoesophageal phase Irritable bowel syndrome without diarrhea K58.9 Irritable bowel syndrome type: without diarrhea Time Spent (min) 35 Comment 25 minutes spent with patient and additional 10 minutes spent reviewing his records
[2025-04-22 14:46] VITALS: BP 94/56; PULSE 84; O2SAT 100; BMI 17.3
--- OUTSIDE RECORDS SUMMARY | 2025-04-22 16:11 | XMS_ITS | Encounter Summary ---
Author Organization [facility] Address [address] [place] [id number] Phone Care Team Providers Care Engraver Signature Name Role Phone Henrietta Fajardo MD Primary Care Provider [phone] Henrietta Fajardo MD Unavailable Florecita Leblanc MD Unavailable Armin Dale MD Unavailable Henrietta Fajardo MD Unavailable Henrietta Fajardo MD Primary Care Provider [phone] Henrietta Fajardo MD Primary Care Provider [phone] Wolf Willett MD Primary Care Provider [phone] Encounter Details Date Type Department Care Team (Late st Contact Info) Description 04/26/2017 Procedure Pass [facility] Radiology - MRI [facility] [address] [place] [id number] Social History Tobacco Use Types Packs/Day Years Used Date Smoking Tobacco: Never Sex and Gender Information Value Date Recorded Sex Assigned at Male 12/24/2022 11:03 AM EDT Legal Sex Male 5:04 PM EST Gender Identity Male 12/24/2022 10:59 AM EDT Sexual Orientation Choose not to disclose 2022 11:03 AM EDT documented as of this encounter Plan of Treatment Not on file documented as of this encounter Visit Diagnoses Not on filedocumented in this encounter Care Teams Engraver Signature Relationship Specialty Start Date End Date Henrietta Fajardo MD [address] [place] [address] [email or web address] PCP - General Internal Medicine 11/22/15 09/19/19 Henrietta Fajardo MD [address] [place] [address] [email or web address] PCP - General Internal Medicine 09/20/19 04/27/20 Henrietta Fajardo MD [address] [place] [id number] [email or web address] PCP - General Internal Medicine 04/28/20 12/23/22 Wolf Willett MD [address] [place] [address] [place] [id number] PCP - General Internal Medicine 12/24/22 Henrietta Fajardo MD [address] [place] [id number] [email or web address] Historical LMR Provider 12/15/16 [place] [address] [email or web address] Historical LMR Provider 12/15/16 [address] [place] [address] Historical LMR Provider 12/15/16 Henrietta Fajardo MD [address] [place] [address] [email or web address] Insurance Assigned Provider 05/26/19 09/04/22 documented as of this encounter Additional Source Comments The information contained in this document represents components of the legal health record. It is not the complete legal health record.[facility]
--- OUTSIDE RECORDS SUMMARY | 2025-04-22 16:11 | XMS_ITS | Clinical Summary ---
Author Organization [facility] Address [address] [place] [id number] Phone Care Team Providers Care Technical Service Specialist Name Role Phone Wolf Willett MD Primary Care Provider [phone] Allergies No known active allergies Medications multivitamin per tablet Take 1 tablet by mouth daily. 03/13/2015 Active LORazepam (ATIVAN) 0.5 MG tablet One po one hour prior to dental work. If no effect after 45 minutes, may take a second tablet. 6 tablet 09/01/2020 Active Active Problems Problem Noted Date Diagnosed Date Weight loss 04/28/2020 Assessment & Plan (01/30/2021 10:56 AM EDT): Wt has increased 2 lbs on our scale. Encouraged regular meals and snacks, continue to monitor wt at home. He has significantly broadened his palate over the past year. Assessment & Plan (09/02/2020 8:09 PM EST): He had gained some weight but then lost weight again following dental extractions which is not unexpected. We discussed a weight gain of a half a pound a week would be a reasonable amount. He is going to weigh himself weekly at home. If he does not gain 2 pounds over the next month he will contact me and I would then refer him to a wood box maker. He declines seeing a wood box maker at this time. Assessment & Plan (04/28/2020 9:06 PM EDT): Check weight q week, let me know if wt decreasing. Offered referral to nutrition, mom declines at this time. Chronic constipation 04/28/2020 Assessment & Plan (04/28/2020 9:08 PM EDT): Recommend adding more fiber: Prunes Metamucil Fiber one bars Pure hypercholesterolemia 07/17/2019 Encounter for well adult exam with abnormal find ings 08/14/2018 Assessment & Plan (04/28/2020 9:09 PM EDT): Recommend: 5 servings fruit/vegetables a day, exercise 30 minutes a day, see the dentist twice a year (pt refuses, does brush BID). Vaccines up to date Daily MVI Assessment & Plan (08/14/2018 10:36 AM EST): Recommend: 5 servings fruit/vegetables a day, limit packaged food, exercise 30 minutes a day, see the dentist twice a year. He refuses to see dentist. I advised him to brush twice a day. He refuses floss, suggested he try water pick. Recommend testicular self exam monthly. Descibed how to do this, what finding to report. TdP today. Suggested he try sweet potato (even as fries). Anxiety 01/20/2018 Assessment & Plan (01/30/2021 10:57 AM EDT): Currently manageable without medication. He is significantly expanded his world, going for walks on his own and [place] Assessment & Plan (09/02/2020 8:13 PM EST): Anxiety related to upcoming visit to the dentist. We discussed using lorazepam to help him relax for upcoming dental work. Discussed this is a benzodiazepine and there is a potential for tolerance, dependence, and addiction with all benzodiazepines. If his use of this medication is limited to before dental work, he is much less likely to be able to develop tolerance, dependence, addiction. We discussed trying a dose of 0.5 mg of lorazepam in the evening at home to see how it affects him. If there is no effect after 60 minutes he could repeat the dose. I recommend he try this at home prior to his dental appointment. 6 tablets given. Assessment & Plan (10/20/2018 5:40 PM EST): Improved with the addition of Cymbalta 20 mg twice a day. Continue this dose. I discussed that I would be willing to write prescriptions for him for up to 6 months while he is establishing care with a new primary care physician in [place]. They can communicate with me via [facility] [place]. We discussed I would definitely continue 20 mill grams twice a day for the next 3 months, especially while their family is making a big transition. At the end of 3 months time, if he is stable I would then consider decreasing the dose. He may need a longer period of time to readjust to such a major life change. Assessment & Plan (09/25/2018 10:59 AM EST): Chronic, not well controlled. Since no side effects to cymbalta, will increase dose from 20mg qd to 20mg bid. I will see him in a month for f/u. If he is going to continue cymbalta, I would be willing to prescribe for up to 6 months after their move while he gets new PCP. Assessment & Plan (08/14/2018 10:38 AM EST): Chronic, not well controlled. Begin cymbalta 20mg a day. Continue CBT at home. Assessment & Plan (07/04/2018 8:30 AM EST): Chronic, not well controlled Since sx began before mirtazapine started, not due to this med. However, sx have been getting worse and this is a new med, so will hold off on this med for now. Will retry once dizziness solved. Assessment & Plan (06/13/2018 8:32 AM EDT): Chronic, not well controlled on celexa 40mg a day. Thus, will taper off celexa, decreasing by 10mg q 5d. Then begin mirtazapine 7.5mg a day for 8d, then 15mg a day. Discussed sedation (which may be helpful at night) and wt gain as possible side effects. Continue working on CBT w/ home lecture series. Continue working on decreasing screen time. Assessment & Plan (05/22/2018 8:59 AM EDT): Chronic, not well controlled. Discussed counseling as a sherwood piece in management of anxiety. I suggested [facility], which he was reluctant to consider. 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 Mom then brought up the CBT video she has, which she found helpful. We discussed [facility], which I recommend for management of anxiety. Would be difficult for them to get there, and his mutism would make interaction hard. I recommend he begin his mom's CBT program, 1/2 hr 2-3x a week. They would do this in the am when they have time scheduled for educational activities (routine from prior home schooling). Since no side effects to celexa and did have some benefit since starting this med, will increase dose to 40mg. If racing thoughts don't improve on this dose, will taper off. Could consider effexor as an alternative. Told them I was happy to have them consult w/ psychiatrist. No psychiatrist now at [facility], and 2 other [place] psychiatrists charge 300 /hr, so psych consult not going to happen. Assessment & Plan (04/24/2018 8:36 AM EDT): Improved with celexa 20mg, not in remission. Increase celexa to 30mg a day Assessment & Plan (04/03/2018 8:22 AM EDT): Since no improvement at all on sertraline 50mg a day, will change to citalopram 20mg a day. Assessment & Plan (02/20/2018 8:33 AM EDT): No benefit from low dose sertraline 12.5mg a day, but no side effects. Increase sertraline to 25mg a day. Call me 03/13 or 03/14 with update on higher dose of sertraline and if any side effects. If not helping, would then increase to 50mg Will f/u here 8/6. Assessment & Plan (01/20/2018 6:23 PM EDT): New problem. Discussed management of anxiety. I recommend he walk regularly and read to help decrease stress. Time away from the computer would be beneficial when feeling stressed. We discussed SSRIs and how they work. We'll start a very low dose of Zoloft, 12.5 mg a day, and reevaluate in 1 month. Call me if any side effects. Will also give a prescription for hydroxyzine 25 mg to use on an as-needed basis. 10 tablets given. Discussed this medication can be sedating. Check B6 and B12 levels He would not be amenable to counseling Anxiety and depression 01/20/2018 Overview (07/17/2019): Referred to Dr Hogue. Trial Zoloft, Remeron, and Celexa ineffective past, Cymbalta trial 2019 semi helpful- increased dosage causing GI upset/constipatoin so tapering back to 20mg. Hx of CBT on CD work on own. Assessment & Plan (04/28/2020 9:03 PM EDT): Has tried zoloft, remeron, celexa, cymbalta. Not interested in antipsychotics. Recommend trial of Cami's wort. Assessment & Plan (07/17/2019 10:10 AM EST): Hx Of Trial Zoloft, Remeron, and Celexa ineffective past, Cymbalta trial 2018 semi helpful- increased dosage causing GI upset/constipatoin so tapering back to 20mg. Hx of CBT on CD work on own. No interest in therapy. Med consult Psych recommended- referral to Dr Hogue. [employer] referral placed as well for insurance concerns. Assessment & Plan (06/13/2018 8:33 AM EDT): Chronic, not well controlled /w celexa. Taper off and then begin mirtazapine. He is not interested in counseling Assessment & Plan (04/24/2018 8:38 AM EDT): Improved with celexa 20mg, not in remission. Increase celexa to 30mg a day Assessment & Plan (04/03/2018 8:23 AM EDT): Since no improvement at all on sertraline 50mg a day, will change to citalopram 20mg a day. Assessment & Plan (02/20/2018 8:34 AM EDT): Not well controlled. Increase sertraline to 25mg a day Assessment & Plan (01/20/2018 6:23 PM EDT): New problem. Discussed that SSRIs are useful for depression as well as anxiety. He is beginning Zoloft. Also encouraged him to continue to get regular exercise. 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 Consult Psych recommended- referral to Dr Hogue. [facility] referral placed as well Assessment & Plan (01/30/2021 10:58 AM EDT): He continues to converse only with his parents, but has significantly expanded his world in that he has gone for walks on his own. Family is pursuing a condominium off [place] as they cannot find housing here. Assessment & Plan (04/28/2020 9:05 PM EDT): Have met w/ SW. Encouraged mom to make a formal plan for if she and her could not provide his care. Her dtr in [place] would not be able to provide the level of care he needs. A longterm would be likely best place for him if his parents could not care for him. Assessment & Plan (07/17/2019 10:02 AM EST): Asperger's disorder; selective mutism (does not speak to anyone except his parents). Consult Psych recommended- referral to Dr Hogue. [employer] referral placed as well Assessment & Plan (08/14/2018 10:38 AM EST): Advised his mom to write up a document stating that if neither she nor her could speak for Atilio that his sister (in [place]) would be his guardian. She should have this notarized. Assessment & Plan (04/24/2018 8:40 AM EDT): His mom has started conversations w/ her dtr in [place] regarding care for him if she could not. She is also looking into getting a nurse first assist to make it official Will continue to follow up on this matter Assessment & Plan (04/03/2018 8:29 AM EDT): Selective mutism, does not speak to anyone except his parents. I discussed with his mother, in his presence, that I strongly suggest she have a legal document that addresses who will care for Javier if she cannot. She does not think her could do this. Her daughter in [place] would be the best person. I advised her to contact her dtr, ask her if she would be willing to have this responsibility and if so to create a legal document stating her dtr would be his legal guardian if she could not speak for him. Resolved Problems Problem Noted Date Diagnosed Date Resolved Date BPV (benign positional vertigo) 07/17/2019 04/28/2020 Drug-induced constipation 07/17/2019 Overview (07/17/2019): cylbalta related Assessment & Plan (07/17/2019 10:26 AM EST): Pt will reduce dose/return to Cymbalta 20mg daily, consult Dr Mykel jorge. Enc to address constipation promptly and use OTC laxative/fiber such as either magnesium or miralax if unable to have comfortable BM for 1-2days - use promptly Impacted cerumen of right ear 10/20/2018 01/30/2021 Assessment & Plan (09/02/2020 8:10 PM EST): Unable to completely remove cerumen. I recommend he use Debrox drops in the right ear every night for 1 week, and then see a provider to attempt cerumen removal again. We discussed that he could return to my office to have this done or [place] options and send me a [place] message with the plan for where he will get cerumen removal. Assessment & Plan (04/28/2020 9:02 PM EDT): Recommend 1/2 water 1/2 vinegar in EAC at home Assessment & Plan (10/20/2018 5:41 PM EST): Removed cerumen from both ears today with irrigation and instrumentation. Discussed going forward they could use a solution of warm water and vinegar, half and half, to flush the ears. Dizziness 07/03/2018 08/14/2018 Assessment & Plan (07/04/2018 8:30 AM EST): New problem, further w/u planned w/ PT eval. Consideration given to sx due to celexa withdrawal. Med was tapered off, no other symptoms of withdrawal, and sx clearly provoked by head movement so I don't think due to celexa withdrawal. Suspect BPPV, referral to PT. I called PT myself, secured apt for him at 9:00 tomorrow am. Further plans pending PT eval. Well adult health check 08/01/201712/28 Assessment & Plan (08/01/2017 9:29 PM EST): Recommend: 5 servings fruit/vegetables a day, limit packaged food, exercise 30 minutes a day, see the dentist twice a year. TdP 2008. Declines flu shot For cerumen, recommend flushing ears w/ 1/2 warm water 1/2 vinegar. Offered ENT referral for cleaning; pt declined. Discussed importance of seeing dentist as lower teeth along gum line do not look good. His mom said his sister had all her teeth extracted at about his age, so they expect that will eventually be his path as well. I offered rx for ativan to help relax him for dental visit if that would make a visit more likely to happen. Pt and mom decline at this time. Increase fluids to prevent dizziness when getting up. Recommend he try adding peas (sweet, soft texture). Vit D3 1000 units/d Sprain of knee 03/13/2015 06/13/2018 Overview (08/05/2015): Knee sprain; Right; [facility] Immunizations Immunization Administration Dates Next Due COVID-19 (Pre-06/20) Pfizer Vaccine, mRNA, PF 01/31/2021,01/08/2021 DTaP, unspecified formulation 02/20/2000 ,11/02/1995,1994,1994,1994 Hepatitis B, unspecified formulation 1994, 1994,1994 Hib, unspecified formulation 07/30/1995, 1994,1994,1993 Influenza Quadrivalent Prese rvative Free IM 09/01/2020 Influenza, Unspecified Formulation 07/27(Deferred: Parental Decision - 00),11/24/2015(Deferred: Patient Decision - 00) MMR 06/21/2000,07/30/1995 Polio, Unspecified Formulation 06/23/1999,1995,1994 Tdap 08/14/2018 Varicella 02/20/2000 Family History Medical History Relation Comments Uncoded Family History Brother CMT - Anabela sbzk-Zeuhz-Xmxss disease Hypertension Father Hypertension Uncoded Family History Father S/P Thyro idectomy Diabetes Maternal Aunt 1 Diabetes Mellitu s Uncoded Family History Maternal Aunt 2 CMT - Anabela stjt-Yxbha-Zqekn disease Uncoded Family History Maternal Grandfather CMT - Mqoprhu-Xnqpp-Gfify disease Uncoded Family History Maternal Grandmother Annmarie toneal cancer Uncoded Family History Mother Hyperchol esterolemia/CMT - Vemmlom-Pwsuc-Kfobu disease Diabetes Paternal Grandmother Diabetes Me llitus Uncoded Family History Sister 2 CMT - Anabela ylly-Akwai-Asksw disease Uncoded Family History Sister 3 CMT - Anabela frmt-Tsjbj-Ffqlp disease Relation Status Comments Brother Father Alive Maternal Aunt 1 Maternal Aunt 2 Maternal Grandfather Maternal Grandmother Cause of De ath: Peritoneal cancer Mother Alive Paternal Grandmother Sister 1 Sister 2 Sister 3 Social History Tobacco Use Types Packs/Day Years Used Date Smoking Tobacco: Never Smokeless Tobacco: Never Alcohol Use Standard Drinks/Week Comments No 0 (1 standard drink = 0.6 oz pur e alcohol) Child or Family Care Answer Date Record ed Do you have problems with on e of the following making it difficult for you to work, study, or receive health care? No 01/27/2021 Education Answer Date Recorded Are you interested in more education? Not on rashida e 02/02/2023 Are you concerned about learning? Not on file 02/02/2023 No 02/02/2023 No 02/02/2023 Food Answer Date Recorded Within the past 6 months we worried whether our food would run out before we got money to buy more. Never True 01/27/2021 Within the past 6 months the food we bought just didn't last and we didn't have enough money to get more. Never True Residential Stability Answer Date Recor ded What is your housing situation today? I have stephen sing 01/27/2021 How many times have you move d in the past 12 months? Zero (I did not move) 01/27/2021 06 Are you worried that in t he next 2 months, you may not have your own housing to live in? Yes 01/27/2021 Paying for Meds Answer Date Recorded Do you have trouble paying for medicines? No 01/27/2021 Paying Utility Bills Answer Date Record ed Do you have trouble paying your heating or elect ricity bill? No 01/27/2021 Transportation Answer Date Recorded Has the lack of transportati on kept you from medical appointments or from getting medications? No 01/27/2021 Unemployment Answer Date Recorded Are you currently unemployed or working on a part-time or temporary basis, and looking for work? No 01/27/2021 Digital Access Answer Date Recorded No 01/23/2023 No 01/23/2023 Reliable internet access at home? Not on file 01/23/2023 Device with a working camera? Not on file Sex and Gender Information Value Date Recorded Sex Assigned at Male 12/24/2022 11:03 AM EDT Legal Sex Male 5:04 PM EST Gender Identity Male 12/24/2022 10:59 AM EDT Sexual Orientation Choose not to disclose 2022 11:03 AM EDT Last Filed Vital Signs Vital Sign Reading Time Taken Comments Blood Pressure 124/85 01/30/2021 10:27 AM EDT Pulse 107 01/30/2021 10:27 AM EDT Temperature 37.7 C (99.8 F) 11/26/2015 2:35 PM EDT Respiratory Rate 10 07/27/2016 11:13 AM EST Oxygen Saturation 100% 01/30/2021 10:27 AM EDT Inhaled Oxygen Concentration - - Weight 49.5 kg (109 lb 3.2 oz) 01/30/2021 10:27 AM EDT Height 163.6 cm (5' 4.41 ) 01/30/2021 10:27 AM E DT Body Mass Index 18.51 01/30/2021 10:27 AM EDT Plan of Treatment Health Maintenance Due Date Last Done Comments HEPATITIS C SCREENING 2012 DEPRESSION SCREENING 04/25/2021 04/25/2020 COVID-19 VACCINE ( season) 2024 01/31/2021, 01/08/2021 Adult Td,Tdap Booster 08/14/2028 08/14/2018 HIB VACCINES Completed 07/30/1995, 10/27, 1994, Additional history exists HIV ONE-TIME SCREENING (18-65 YEARS) Completed 11/23/2015 SMOKING STATUS SCREENING (Once After 26 Yrs) Completed 08/20/2019 HEPATITIS A VACCINES Aged Out No long er eligible based on patient's age to complete this topic MENINGOCOCCAL VACCINES (ACWY) Aged Out No longer eligible based on patient's age to complete this topic MENINGOCOCCAL VACCINES (B) Aged Out N o longer eligible based on patient's age to complete this topic PNEUMOCOCCAL VACCINES (0-49 years) Aged Out No longer eligible based on patient's age to complete this topic Medical Devices Not on file Insurance MEDICARE PART A & B [facility] MEDICARE REPLACEMENT MEDICARE PART A & B [facility] MEDICARE REPLACEMENT MEDICARE PART A & B MEDICARE PART A & B MEDICARE PART A & B [facility] MEDICARE REPLACEMENT MEDICARE PART A & B [facility] MEDICARE REPLACEMENT MEDICARE PART A & [place] [address] [place] [address] ONE CARE MEDICARE REPLACEMENT MEDICARE PART A & B [facility] ONE CARE MEDICARE REPLACEMENT Care Teams Technical Service Specialist Relationship Specialty Start Date End Date Wolf Willett MD [address] [place] [address] [place] [phone] PCP - General Internal Medicine 12/24/22 Additional Source Comments The information contained in this document represents components of the legal health record. It is not the complete legal health record.[facility]
--- OUTSIDE RECORDS SUMMARY | 2025-04-22 16:11 | XMS_ITS | Encounter Summary ---
Author Organization [facility] Address [address] [place] [address] Phone Care Team Providers Care Cardiology Clinical Consultant Name Role Phone Henrietta Fajardo MD Primary Care Provider [phone] Henrietta Fajardo MD Unavailable Florecita Leblanc MD Unavailable Armin Dale MD Unavailable Henrietta Fajardo MD Unavailable [phone] Henrietta Fajardo MD Primary Care Provider [phone] Henrietta Fajardo MD Primary Care Provider [phone] Wolf Willett MD Primary Care Provider [phone] Reason for Referral * MRI/CAT Scan - Closed Specialty Diagnoses / Procedures Referred By Contac t Referred To Contact Radiology Diagnoses Pigmented villonodular synovitis of knee, right Procedures MRI Knee (Right) MRI Hip (Right) Rubén Martins MD Phone: tel: fax: mailto: Referral ID Status Reason Start Date Expiration Date Visits Re quested Visits Authorized [id number] Closed 04/26/2017 04/28/2018 1 1 Encounter Details Date Type Department Care Team (Late st Contact Info) Description 05/05/2017 [place] [address] Rubén [place] [address] Pigmented villonodular synovitis of knee, right Social History Tobacco Use Types Packs/Day Years [...] on file documented as of this encounter Results * MRI KNEE WITHOUT CONTRAST (RIGHT) (05/05/2017 3:42 PM EDT) Anatomical Region Laterality Modality Knee Right Magnetic Resonan ce 05/05/2017 4:35 PM EDT Impressions 05/06/2017 3:25 PM EDT No substantial change in size or configuration of PVNS in the posterosuperior recess and medial gastrocnemius/semimembranosus bursa. Narrative 05/06/2017 3:25 PM EDT TECHNIQUE: Magnetic resonance imaging of the Right Knee was performed WITHOUT intravenous contrast. COMPARISON: Right knee radiographs 11/21/2015, knee MRI 08/04/2016. FINDINGS: Joint effusion: No joint effusion is present. No substantial change in size or configuration of T1 and T2 isointense material in the posterosuperior recess (2.4 x 3 x 1.3 cm in the CC, TV and AP dimensions) and posterior joint recess (medial gastrocnemius/semimembranosus bursa). Menisci: The medial and lateral meniscus both appear normal. No meniscal tear is seen. Tendons and Ligaments: The ACL and the PCL are intact. The collateral ligaments are unremarkable. The iliotibial band is unremarkable. The extensor mechanism appears normal. Bone and Articular Cartilage: Focal hyperintense signal along the medial patellar facet are similar in appearance. No defects in the medial or lateral compartment. Procedure Note Angel Farfan MD - 05/06/2017 TECHNIQUE: Magnetic resonance imaging of the Right Knee was performed WITHOUTintravenous contrast. COMPARISON: Right knee radiographs 11/21/2015, knee MRI 08/04/2016. FINDINGS: Joint effusion: No joint effusion is present. No substantial change insize or configuration of T1 and T2 isointense material in the posterosuperiorrecess (2.4 x 3 x 1.3 cm in the CC, TV and AP dimensions) and posterior jointrecess (medial gastrocnemius/semimembranosus bursa). Menisci: The medial and lateral meniscus both appear normal. No meniscaltear is seen. Tendons and Ligaments: The ACL and the PCL are intact. The collateralligaments are unremarkable. The iliotibial band is unremarkable. The extensormechanism appears normal. Bone and Articular Cartilage: Focal hyperintense signal along the medial patellar facet are similar in appearance. No defects in the medial orlateral compartment. IMPRESSION: No substantial change in size or configuration of PVNS in theposterosuperior recess and medial gastrocnemius/semimembranosus bursa. us Rubén Martins MD IMG MR EXTREMITY Final Result documented in this encounter Visit Diagnoses Diagnosis Pigmented villonodular synovitis of knee, right Pigmented villonodular synovitis of knee, right documented in this encounter Care Teams Cardiology Clinical Consultant Relationship Specialty Start Date End Date Henrietta Fajardo MD [address] [place] [address] PCP - General Internal Medicine 11/22/15 09/19/19 Henrietta Fajardo MD [address] [place] [address] PCP - General Internal Medicine 09/20/19 04/27/20 Henrietta Fajardo MD [address] [place] [address] [email or web address] PCP - General Internal Medicine 04/28/20 12/23/22 Wolf Willett MD [address] [place] [address] [place] [address] PCP - General Internal Medicine 12/24/22 Henrietta Fajardo MD [address] [place] [address] [email or web address] Historical LMR Provider 12/15/16 [place] [address] [email or web address] Historical LMR Provider 12/15/16 1 [place] [address] Historical LMR Provider 12/15/16 Henrietta Fajardo MD [address] [place] [address] [email or web address] Insurance Assigned Provider 05/26/19 09/04/22 documented as of this encounter Additional Source Comments The information contained in this document represents components of the legal health record. It is not the complete legal health record.[facility]
== END 2025-04-22 15:13 | disposition home or self-care (01) ==
LOC: HO.HGI 14:29
PROVIDERS: PCP Internal Medicine; Visit Provider Nurse Practitioner Family
DX: K21.9 Gastro-esophageal reflux disease without esophagitis (principal); R13.14 Dysphagia, pharyngoesophageal phase; K58.9 Irritable bowel syndrome, unspecified; R13.10 Dysphagia, unspecified
CPT/HCPCS: 99214; G2211

== ENCOUNTER → 2025-04-22 14:28 | Outpatient (BNVA) | payer OTHER, SELFPAY | PROVIDERS: PCP Internal Medicine; Visit Provider Nurse Practitioner Family | DX: K21.9 Gastro-esophageal reflux disease without esophagitis (principal); R13.14 Dysphagia, pharyngoesophageal phase; K58.9 Irritable bowel syndrome, unspecified | CPT/HCPCS: 99212 ==

== ENCOUNTER 2025-05-16 13:28 | Outpatient (REF) | payer OTHER, SELFPAY ==
[2025-05-17 12:11] LABS: Chlamydia pneumoniae PCR Not Detected (Not Detect.); Coronavirus 229E PCR Not Detected (Not Detect.); Coronavirus HKU1 PCR Not Detected (Not Detect.); Coronavirus NL63 PCR Not Detected (Not Detect.); Coronavirus OC43 PCR Not Detected (Not Detect.); RSV PCR Not Detected (Not Detect.); Rhino/Enterovirus PCR Not Detected (Not Detect.)
[2025-05-17 12:41] LABS: Influenza A H1 PCR Not Detected (Not Detect.); Influenza A H1-2009 PCR Not Detected (Not Detect.); Influenza A H3 PCR Not Detected (Not Detect.); SARS-CoV-2 PCR Detected (Not Detect.)
== END 2025-05-16 13:29 | disposition home or self-care (01) ==
LOC: HO.LNP 13:28
PROVIDERS: PCP Internal Medicine; Visit Provider Physician Assistant Medical
DX: J02.9 Acute pharyngitis, unspecified (principal); J06.9 Acute upper respiratory infection, unspecified; R05.3 Chronic cough; H61.23 Impacted cerumen, bilateral
CPT/HCPCS: 69209; 87633; 99212

== ENCOUNTER 2025-05-16 13:28 | Outpatient (AMB) | payer OTHER, SELFPAY ==
--- NOTE | 2025-05-16 13:35 | AM.OFFWIN_ITS ---
Intake Vital Signs 05/16/25 13:36 Height 5 ft 5 in Weight 107 lb BMI 17.8 BP 132/64 Blood Pressure Location Lt brachial Position Sitting Pulse 96 Pulse Source Pulse Oximeter Pulse Oximetry (%) 99 Oxygen Delivery Method Room Air Intake Visit Reasons: ep sore throat for 3 days Intake Note: pt reports with sore throat and pain swallowing x3 days *pt declines oral temp and rapid strep swabbing d/t extreme gag reflux* Patient Tobacco Use Status: Never used Tobacco Allergies No Known Allergies Allergy (Verified 05/16/25 13:36) Do you need a note to return to daycare/school/sports/work: No HPI HPI Comments History of Present Illness Details History - The patient is a 30-year-old male pres enting with a sore throat. - The sore throat has persisted for thre e days and is associated with pain radiating to the ears, particularly the left ear. - The patient reports mild cough and monisha n upon swallowing, but denies headache, nausea, vomiting, chest pain, or shortness of breath. - No fever has been noted, and the patie nt is able to eat and drink normally. - The patient has a strong gag reflex an d prefers not to undergo a strep culture. - The patient does not smoke and has no history of fever. - He denies sick contacts or travel. Physical Exam General: Cooperative, healthy appearing, comfortable and no acute distress Orientation/consciousness: Patient oriented x3 Limitations: No limitations Head: Normal to inspection Ears: Hearing grossly normal bilaterally, external ears normal and TM not visualized bilaterally. Cerumen is present. Nose: Normal external nose present, normal nares present, and no nasal discharge present. Face and sinus: Sinuses nontender to palpation. Mouth: Normal oral and palatal mucosa present and moist mucous membranes noted. Throat: Tonsils normal. Uvula is midline. Posterior oropharynx with erythema and no exudates. Eyes: Appearance normal, both eyes and all related structures Neck: Normal visual inspection, full ROM. No lymphadenopathy noted. Respiratory: Clear to auscultation bilaterally. Normal respiratory effort, able to speak in complete sentences. No respiratory distress, not tachypneic, no tripod positioning and no use of accessory muscles. Cardiovascular: Regular rate and rhythm. Normal S1 and S2 Skin: No rashes or lesions noted Patient was informed and verbally consented to the use of an ambient scribe for clinic note documentation during this visit [facility] Medical History (Updated 04/22/25 @ 15:[address] 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 Surgical History History of esophagogastroduodenoscopy (EGD) H/O right knee surgery Family History Mother High cholesterol Father High blood pressure Other Mental health problem Social History Housing: Condominium Alcohol intake: never Patient Tobacco Use Status: Never used Tobacco e-Cigarette/Vaping Use: Never Used Second Hand Smoke Exposure: No service: No Current occupational status: disabled Cognitive needs: No Hearing needs: No Vision needs: Yes (glasses) Review of Systems Const All systems reviewed & are unremarkable except as noted in HPI and below Physical Exam Vital Signs: Last Vital Signs Pulse 96 05/16/25 13:36 BP 132/64 05/16/25 13:36 Pulse Ox 99 05/16/25 13:36 Oxygen Delivery Method Room Air 05/16/25 13:36 BMI result Body Mass Index 17.8 Office Procedures Cerumen Removal From which ear canal was the cerumen removed: bilateral Removal: irrigation Notes: patient tolerated procedure well, no complications and ear canal clear 06349-[id number] Irrigation/Lavage Assessment & Plan Assessment & Plan (1) Sore throat: Code(s): J02.9 - Acute pharyngitis, unspecified (2) Cerumen impaction: Code(s): H61.20 - Impacted cerumen, unspecified ear Qualifiers: Laterality: bilateral Qualified Code(s): H61.23 - Impacted cerumen, bilateral Plan Most likely strep vs covid vs flu vs RSV vs viral illness also has cerumen impaction plan 1. Pharyngitis - pt refused a rapid strep or throat culture due to his gag reflex - Plan to test for COVID-19 and other respiratory infections. - Symptomatic treatment advised, including maintaining hydration, salt water gargles, and possibly using ulpp-qgi-dyudtbl pain relief. 2. Earwax Impaction - Ear cleaning procedure recommended to alleviate symptoms. Orders: Orders Resp Pathogen [place] [facility] [place] J06.9 - Acute upper respiratory infection, unspecified AMB Cerumen Removal Today H61.23 - Impacted cerumen, bilateral Coding Level of Care Code Est Pt Level 3 (58437) Diagnoses Sore throat J02.9 Bilateral impacted cerumen H61.23 Laterality: bilateral CPT Codes Office Procedure - CPT: 42758-Gki Irrigation/Lavage ([id number])
[2025-05-16 13:36] VITALS: BP 132/64; PULSE 96; O2SAT 99; BMI 17.8
--- OUTSIDE RECORDS SUMMARY | 2025-05-16 15:28 | XMS_ITS | Encounter Summary ---
Author Organization [facility] Address [address] [place] [address] Phone Care Team Providers Care Wire Winding Machine Tender Name Role Phone Henrietta Fajardo MD Primary Care Provider [phone] Henrietta Fajardo MD Unavailable Florecita Leblanc MD Unavailable Armin Dale MD Unavailable Henrietta Fajardo MD Unavailable Henrietta Fajardo MD Primary Care Provider [phone] Henrietta Fajardo MD Primary Care Provider [phone] Wolf Willett MD Primary Care Provider [phone] Encounter Details Date Type Department Care Team (Late st Contact Info) Description 04/26/2017 Procedure Pass [facility] Radiology - MRI [facility] [address] [place] [id number] Social History Tobacco Use Types Packs/Day Years [...] on filedocumented in this encounter Care Teams Wire Winding Machine Tender Relationship Specialty Start Date End Date Henrietta Fajardo MD [address] [place] [address] [email or web address] PCP - General Internal Medicine 11/22/15 09/19/19 Henrietta Fajardo MD [address] [place] [address] [email or web address] PCP - General Internal Medicine 09/20/19 04/27/20 Henrietta Fajardo MD [address] [place] [address] [email or web address] PCP - General Internal Medicine 04/28/20 12/23/22 Wolf Willett MD [address] [place] [address] [place] [address] PCP - General Internal Medicine 12/24/22 Henrietta Fajardo MD [address] [place] [address] [email or web address] Historical LMR Provider 12/15/16 [place] [address] [email or web address] Historical LMR Provider 12/15/16 1 [place] [address] Historical LMR Provider 12/15/16 Henrietta Fajardo MD [address] [place] [address] [email or web address] Insurance Assigned Provider 05/26/19 09/04/22 documented as of this encounter Additional Source Comments The information contained in this document represents components of the legal health record. It is not the complete legal health record.[facility]
--- OUTSIDE RECORDS SUMMARY | 2025-05-16 15:28 | XMS_ITS | Encounter Summary ---
Author Organization [facility] Address [address] [place] [address] Phone Care Team Providers Care Key Account Executive Name Role Phone Henrietta Fajardo MD Primary Care Provider [phone] Henrietta Fajardo MD Unavailable [phone] Florecita Leblanc MD Unavailable [phone] Armin Dale MD Unavailable [phone] Henrietta Fajardo MD Unavailable [phone] Henrietta Fajardo MD Primary Care Provider [phone] Henrietta Fajardo MD Primary Care Provider [phone] Wolf Willett MD Primary Care Provider [phone] Reason for Referral * MRI/CAT Scan - Closed Specialty Diagnoses / Procedures Referred By Contac t Referred To Contact Radiology Diagnoses Pigmented villonodular synovitis of knee, right Procedures MRI Knee (Right) MRI Hip (Right) Rubén Martins MD Phone: tel: fax: mailto: Referral ID Status Reason Start Date Expiration Date Visits Re quested Visits Authorized [id number] Closed 04/26/2017 04/28/2018 1 1 Encounter Details Date Type Department Care Team (Late st Contact Info) Description 05/05/2017 Ancillary Orders [facility] [place] [address] Rubén [place] [address] Pigmented villonodular synovitis of knee, right Social [...] right documented in this encounter Care Teams Key Account Executive Relationship Specialty Start Date End Date Henrietta Fajardo MD [address] [place] [address] PCP - General Internal Medicine 11/22/15 09/19/19 Henrietta Fajardo MD [address] [place] [address] PCP - General Internal Medicine 09/20/19 04/27/20 Henrietta Fajardo MD [address] [place] [address] [email or web address] PCP - General Internal Medicine 04/28/20 12/23/22 Wolf Willett MD [address] [place] [address] [place] [address] PCP - General Internal Medicine 12/24/22 Henrietta Fajardo MD [address] [place] [address] [email or web address] Historical LMR Provider 12/15/16 [place] [address] [email or web address] Historical LMR Provider 12/15/16 1 [place] [address] Historical LMR Provider 12/15/16 Henrietta Fajardo MD [address] [place] [address] [email or web address] Insurance Assigned Provider 05/26/19 09/04/22 documented as of this encounter Additional Source Comments The information contained in this document represents components of the legal health record. It is not the complete legal health record.[facility]
--- OUTSIDE RECORDS SUMMARY | 2025-05-16 15:28 | XMS_ITS | Clinical Summary ---
Author Organization [facility] Address [address] [facility] [address] [place] [address] Phone Care Team Providers Care Blueprint Clerk Name Role Phone Wolf Willett MD Primary Care Provider [phone] Allergies No known active allergies Medications multivitamin [...] I would then refer him to a aircraft life support fitter. He declines seeing a aircraft life support fitter at this time. Assessment & Plan (04/28/2020 [...] with a new primary care physician in [place]. They can communicate with me via patient Farson. We discussed I would definitely continue 20 [...] piece in management of anxiety. I suggested [facility], which he was reluctant to consider. 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 Mom then brought up the CBT video she has, which she found helpful. We discussed [facility] [place], which I recommend for management of anxiety. [...] consult w/ psychiatrist. No psychiatrist now at [facility], and 2 other [place] psychiatrists charge 300 /hr, so psych consult [...] consult Psych recommended- referral to Dr Hogue. LUMBER SALES SUPERVISOR referral placed as well for insurance concerns. [...] Consult Psych recommended- referral to Dr Hogue. [facility] referral placed as well Assessment & Plan (01/30/2021 10:58 AM EDT): He continues to converse only with his parents, but has significantly expanded his world in that he has gone for walks on his own. Family is pursuing a condominium off [address] as they cannot find housing here. Assessment & Plan (04/28/2020 9:05 PM EDT): Have met w/ SW. Encouraged mom to make a formal plan for if she and her could not provide his care. Her dtr in [place] would not be able to provide the level of care he needs. A fci would be likely best place for him if his parents could not care for him. Assessment & Plan (07/17/2019 10:02 AM EST): Asperger's disorder; selective mutism (does not speak to anyone except his parents). Consult Psych recommended- referral to Dr Hogue. LUMBER SALES SUPERVISOR referral placed as well Assessment & Plan (08/14/2018 10:38 AM EST): Advised his mom to write up a document stating that if neither she nor her could speak for Atilio that his sister (in [place]) would be his guardian. She should have this notarized. Assessment & Plan (04/24/2018 8:40 AM EDT): His mom has started conversations w/ her dtr in [place] regarding care for him if she could not. She is also looking into getting a organizational development manager to make it official Will continue to [...] her could do this. Her daughter in [place] would be the best person. I advised [...] these options and send me a patient Farson message with the plan for where he [...] 03/13/2015 06/13/2018 Overview (08/05/2015): Knee sprain; Right; [facility] ER Immunizations Immunization Administration Dates Next Due [...] Uncoded Family History Brother CMT - Anabela oxlu-Ipnwo-Zvrxp disease Hypertension Father Hypertension Uncoded Family History Father S/P Thyro idectomy Diabetes Maternal Aunt 1 Diabetes Mellitu s Uncoded Family History Maternal Aunt 2 CMT - Anabela htug-Yevpe-Kabgv disease Uncoded Family History Maternal Grandfather CMT - Lyrzsji-Sqwwe-Whnfe disease Uncoded Family History Maternal Grandmother Annmarie toneal cancer Uncoded Family History Mother Hyperchol esterolemia/CMT - Poazevu-Fhvwz-Faqjo disease Diabetes Paternal Grandmother Diabetes Me llitus Uncoded Family History Sister 2 CMT - Anabela xwlg-Egttj-Pxzpj disease Uncoded Family History Sister 3 CMT - Anabela eqto-Vncmr-Ndeqc disease Relation Status Comments Brother Father Alive [...] C SCREENING 2012 DEPRESSION SCREENING 04/25/2021 04/25/2020 INFLUENZA VACCINE (#1) 2025 09/01/2020, 2020 COVID-19 VACCINE ( season) 2025 01/31/2021, 01/08/2021 Adult Td,Tdap Booster 08/14/2028 08/14/2018 [...] file Insurance MEDICARE PART A & B Member Subscriber Plan / Payer (Ef fective 2015-Present) Name:Atilio Kesslerk J Member ID:[id number] Relation to Subscriber:Self Name:Mack Kessler Subscriber ID:[id number] Payer ID:[id number] Group ID:Not on file Type:Medicare Address: [facility] [employer] [facility] [address] [place] [address] CARE MEDICARE REPLACEMENT [place] [facility] MEDICARE PART A & B [facility] MEDICARE REPLACEMENT [place] [id number] MEDICARE PART A & B MEDICARE PART A & B MEDICARE PART A & B [facility] MEDICARE REPLACEMENT MEDICARE PART A & B [facility] MEDICARE REPLACEMENT MEDICARE PART A & B [facility] MEDICARE REPLACEMENT MEDICARE PART A & B MEDICARE PART A & B [facility] ONE CARE MEDICARE REPLACEMENT Care Teams Blueprint Clerk Relationship Specialty Start Date End Date Wolf Willett MD [address] [place] [address] [place] [address] PCP - General Internal Medicine 12/24/22 Additional Source Comments The information contained in this document represents components of the legal health record. It is not the complete legal health record.[facility]
== END 2025-05-16 14:33 | disposition home or self-care (01) ==
PROVIDERS: PCP Internal Medicine; Visit Provider Physician Assistant Medical
DX: J02.9 Acute pharyngitis, unspecified (principal); H61.23 Impacted cerumen, bilateral

== ENCOUNTER 2025-07-23 14:04 | Outpatient (AMB) | payer OTHER, SELFPAY ==
--- NOTE | 2025-07-23 14:12 | A.OFFVIS_ITS ---
Vital Signs 07/23/25 14:16 Height 5 ft 5 in Weight 107 lb BMI 17.8 BP 108/64 Blood Pressure Location Rt brachial Position Sitting Pulse 72 Pulse Source Pulse Oximeter Pulse Oximetry (%) 100 Oxygen Delivery Method Room Air Intake Visit Reasons: 3m Intake Note: ESTABLISHED PATIENT for GERD + Dysphagia mgmt. Chief Complaint; Pt denies any new GI concerns or sx at this time. Confirms he is taking his PPI as instructed and w/o complication. Government Minister Required: No Accompanied by: Mother Allergies No Known Allergies Allergy (Verified 07/23/25 14:12) Medication List - Last Reconciled 07/23/25 by Meliza Salvador, POWER NUT RUNNER OPERATOR- esomeprazole magnesium (Nexium) 40 mg PO DAILY HPI HPI 3m: Details: LAST VISIT: GERD (gastroesophageal reflux disease) Difficulty swallowing Dysphagia IBS (irritable bowel syndrome) Plan Patient was encouraged to chew his food and drink with each bite. Continue low FODMAP diet, continue avoiding milk and even gluten. Try gluten free pasta and gluten free bread. High-calorie diet discussed with patient. Handout given to patient on how to prepare high-calorie meals and shakes. He will continue taking Nexium. Avoid dietary triggers and like that snacking. Staying upright for minimum 3 hours after meals discussed with patient. He will return in three months, sooner on as needed basis. Both patient and his mom are agreeable to plan of care and verbalizes understanding of instructions. They were given the opportunity to ask questions and all questions answered. TODAY'S VISIT Patient is here today for follow-up. Patient is accompanied by his mother. Patient reports that he has been doing better. No weight loss since last visit. He is taking Nexium every morning. Denies dyspepsia, dysphagia or odynophagia. Reports that he is moving his bowels well without any issues. Patient denies any abdominal pain or discomfort. Occasional abdominal bloating depending on what he eats. Otherwise patient reports to be feeling well. 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 Surgical History History of esophagogastroduodenoscopy (EGD) H/O right knee surgery Family History Mother High cholesterol Father High blood pressure Other Mental health problem Social History Housing: Condominium Alcohol intake: never Patient Tobacco Use Status: Never used Tobacco e-Cigarette/Vaping Use: Never Used Second Hand Smoke Exposure: No service: No Current occupational status: disabled Cognitive needs: No Hearing needs: No Vision needs: Yes (glasses) Review of Systems Const Denies weight gain and Denies weight loss ENT Reports no additional complaints, Denies dysphagia and Denies odynophagia Card Reports no additional complaints Resp Reports no additional complaints GI Denies abdominal pain, Denies belching, Denies melena, Denies bloating, Denies change in bowel habits, Denies constipation, Denies dysphagia, Denies excessive flatus, Denies dyspepsia, Denies heartburn, Denies diarrhea, Denies loose stools, Denies nausea, Denies odynophagia and Denies vomiting Reports no additional complaints Musc Reports no additional complaints Neuro Reports no additional complaints Psych Reports no additional complaints Endo Reports no additional complaints Physical Exam Vital Signs: Last Vital Signs Pulse 72 07/23/25 14:16 BP 108/64 07/23/25 14:16 Pulse Ox 100 07/23/25 14:16 Oxygen Delivery Method Room Air 07/23/25 14:16 BMI result Body Mass Index 17.8 Const General: healthy appearing and no acute distress Nutritional Appearance: underweight Orientation/consciousness: patient oriented x3 Resp Effort & Inspection: normal respiratory effort, able to speak in complete sentences, no tracheal deviation and symmetric chest movement Auscultation: clear to auscultation bilaterally Cardio Rate: regular rate GI Inspection: Yes normal to inspection and No distended Palpation (GI): Soft to palpation, not firm, nontender and No hepatosplenomegaly present Auscultation: normal bowel sounds General: Yes no CVA tenderness Back/Spine/Pelvis Back: no CVA tenderness Skin General skin exam: elasticity normal, turgor normal and dry skin Neuro General: patient oriented x3 Psych Appearance: grossly normal Mental Status: mental status grossly normal Assessment & Plan Assessment & Plan (1) GERD (gastroesophageal reflux disease): Code(s): K21.9 - Gastro-esophageal reflux disease without esophagitis Category: Medical Qualifiers: Esophagitis presence: without esophagitis Qualified Code(s): K21.9 - Gastro-esophageal reflux disease without esophagitis (2) Dysphagia: Code(s): R13.10 - Dysphagia, unspecified Category: Medical Qualifiers: Dysphagia type: unspecified Qualified Code(s): R13.10 - Dysphagia, unspecified (3) IBS (irritable bowel syndrome): Code(s): K58.9 - Irritable bowel syndrome, unspecified Category: Medical Qualifiers: Irritable bowel syndrome type: without diarrhea Qualified Code(s): K58.9 - Irritable bowel syndrome, unspecified Plan Patient will continue taking Nexium every morning. Avoid dietary triggers and like that snacking. He has been doing better. Importance of eating more often and increase caloric intake so he can gain weight. Still declining dietary/nutrition consult. Return in 6 months, sooner on as needed basis. Patient is agreeable to this plan and verbalizes understanding of instructions. He was given the opportunity to ask questions and all questions answered Thank you for allowing me to participate in his care Coding Level of Care Code Est Pt Level 3 (00672) Diagnoses Gastroesophageal reflux disease without esophagitis K21.9 Esophagitis presence: without esophagitis Dysphagia, unspecified type R13.10 Dysphagia type: unspecified Irritable bowel syndrome without diarrhea K58.9 Irritable bowel syndrome type: without diarrhea Time Spent (min) 25 Comment 15 minutes spent with patient and additional 10 minutes spent reviewing his records
[2025-07-23 14:16] VITALS: BP 108/64; PULSE 72; O2SAT 100; BMI 17.8
--- OUTSIDE RECORDS SUMMARY | 2025-07-23 17:59 | XMS_ITS | Encounter Summary ---
Author Organization [facility] Address [address] [place] [address] Phone Care Team Providers Care Knitter Hand Name Role Phone Henrietta Fajardo MD Primary Care Provider [phone] Henrietta Fajardo MD Unavailable [phone] Florecita Leblanc MD Unavailable [phone] Armin Dale MD Unavailable Henrietta Fajardo MD Unavailable Henrietta Fajardo MD Primary Care Provider [phone] Henrietta Fajardo MD Primary Care Provider [phone] Wolf Willett MD Primary Care Provider [phone] Reason for Referral * MRI/CAT Scan - Closed Specialty Diagnoses / Procedures Referred By Contlucero t Referred To Contact Radiology Diagnoses Pigmented villonodular synovitis of knee, right Procedures MRI Knee (Right) MRI Hip (Right) Rubén Martins MD Phone: tel: fax: [email or web address] Referral ID Status Reason Start Date Expiration Date Visits Re quested Visits Authorized [id number] Closed 04/26/2017 04/28/2018 1 1 Encounter Details Date Type Department Care Team (Late st Contact Info) Description 05/05/2017 Ancillary Orders [facility] [place] [address] Rubén [place] [address] Pigmented villonodular synovitis of knee, right Social [...] right documented in this encounter Care Teams Knitter Hand Relationship Specialty Start Date End Date Henrietta Fajardo MD [address] [place] [address] PCP - General Internal Medicine 11/22/15 09/19/19 Henrietta Fajardo MD [address] [place] [address] PCP - General Internal Medicine 1/23/20 8/30/20 Henrietta Fajardo MD [address] [place] [address] PCP - General Internal Medicine 04/28/20 12/23/22 Wolf Willett MD [address] [place] [address] [place] [address] PCP - General Internal Medicine 12/24/22 Henrietta Fajardo MD [address] [place] [address] [email or web address] Historical LMR Provider 12/15/16 Florecita [place] [address] [email or web address] Historical LMR Provider 12/15/16 1 [place] [address] Historical LMR Provider 12/15/16 Henrietta Fajardo MD [address] [place] [address] [email or web address] Insurance Assigned Provider 05/26/19 09/04/22 documented as of this encounter Additional Source Comments The information contained in this document represents components of the legal health record. It is not the complete legal health record.[facility]
--- OUTSIDE RECORDS SUMMARY | 2025-07-23 17:59 | XMS_ITS | Encounter Summary ---
Author Organization [facility] Address [address] [place] [address] Phone Care Team Providers Care Collection Analyst Name Role Phone Henrietta Fajardo MD Primary Care Provider [phone] Henrietta Fajardo MD Unavailable Florecita Leblanc MD Unavailable [phone] Armin Dale MD Unavailable Henrietta Fajardo MD Unavailable Henrietta Fajardo MD Primary Care Provider [phone] Henrietta Fajardo MD Primary Care Provider [phone] Wolf Willett MD Primary Care Provider [phone] Encounter Details Date Type Department Care Team (Late st Contact Info) Description 04/26/2017 Procedure Pass [facility] Radiology - MRI [address] [place] [id number] Social History Tobacco Use Types Packs/Day Years [...] on filedocumented in this encounter Care Teams Collection Analyst Relationship Specialty Start Date End Date Henrietta Fajardo MD [address] [place] [address] [email or web address] PCP - General Internal Medicine 11/22/15 09/19/19 Henrietta Fajardo MD [address] [place] [address] [email or web address] PCP - General Internal Medicine 09/20/19 04/27/20 Henrietta Fajardo MD [address] [place] [address] [email or web address] PCP - General Internal Medicine 04/28/20 12/23/22 Wolf Willett MD [address] [place] [address] [place] [address] PCP - General Internal Medicine 12/24/22 Henrietta Fajardo MD [address] [place] [phone] [email or web address] Historical LMR Provider 12/15/16 [place] [address] [email or web address] Historical LMR Provider 12/15/16 1 [place] [address] Historical LMR Provider 12/15/16 Henrietta Fajardo MD [address] [place] [address] [email or web address] Insurance Assigned Provider 05/26/19 09/04/22 documented as of this encounter Additional Source Comments The information contained in this document represents components of the legal health record. It is not the complete legal health record.[facility]
--- OUTSIDE RECORDS SUMMARY | 2025-07-23 17:59 | XMS_ITS | Clinical Summary ---
Author Organization [facility] Address [address] [facility] [address] [place] [address] Phone Care Team Providers Care Electronic Data Interchange Specialist Name Role Phone Wolf Willett MD Primary Care Provider [phone] Allergies No known active allergies Medications multivitamin [...] I would then refer him to a outpatient phlebotomist. He declines seeing a outpatient phlebotomist at this time. Assessment & Plan (04/28/2020 [...] with a new primary care physician in [place]. They can communicate with me via [place]. We discussed I would definitely continue 20 [...] piece in management of anxiety. I suggested [facility], which he was reluctant to consider. 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 Mom then brought up the CBT video she has, which she found helpful. We discussed [facility] [place], which I recommend for management of anxiety. [...] consult w/ psychiatrist. No psychiatrist now at [facility], and 2 other [place] psychiatrists charge 300 /hr, so psych consult [...] then increase to 50mg Will f/u here 04/03. Assessment & Plan (01/20/2018 6:23 PM EDT): [...] consult Psych recommended- referral to Dr Hogue. PUBLIC HEALTH STAFF NURSE referral placed as well for insurance concerns. [...] Consult Psych recommended- referral to Dr Hogue. [facility] referral placed as well Assessment & Plan (01/30/2021 10:58 AM EDT): He continues to converse only with his parents, but has significantly expanded his world in that he has gone for walks on his own. Family is pursuing a condominium off [place] as they cannot find housing here. Assessment & Plan (04/28/2020 9:05 PM EDT): Have met w/ SW. Encouraged mom to make a formal plan for if she and her could not provide his care. Her dtr in [place] would not be able to provide the level of care he needs. A [facility] would be likely best place for him if his parents could not care for him. Assessment & Plan (07/17/2019 10:02 AM EST): Asperger's disorder; selective mutism (does not speak to anyone except his parents). Consult Psych recommended- referral to Dr Hogue. [facility] referral placed as well Assessment & Plan (08/14/2018 10:38 AM EST): Advised his mom to write up a document stating that if neither she nor her could speak for Atilio that his sister (in [place]) would be his guardian. She should have this notarized. Assessment & Plan (04/24/2018 8:40 AM EDT): His mom has started conversations w/ her dtr in [place] regarding care for him if she could not. She is also looking into getting a physical education professor to make it official Will continue to [...] her could do this. Her daughter in [place] would be the best person. I advised [...] dose/return to Cymbalta 20mg daily, consult Dr Hogue next. Enc to address constipation promptly and use [...] these options and send me a [place] message with the plan for where he [...] 03/13/2015 06/13/2018 Overview (08/05/2015): Knee sprain; Right; [facility] Immunizations Immunization Administration Dates Next Due [...] Uncoded Family History Brother CMT - Anabela gsmx-Nbspc-Xxhlt disease Hypertension Father Hypertension Uncoded Family History Father S/P Thyro idectomy Diabetes Maternal Aunt 1 Diabetes Mellitu s Uncoded Family History Maternal Aunt 2 CMT - Naabela tccl-Ehjpj-Sxtyw disease Uncoded Family History Maternal Grandfather CMT - Jsglxqr-Eahan-Vavqe disease Uncoded Family History Maternal Grandmother Annmarie toneal cancer Uncoded Family History Mother Hyperchol esterolemia/CMT - Fqgtbcl-Hjgtu-Yviaf disease Diabetes Paternal Grandmother Diabetes Me llitus Uncoded Family History Sister 2 CMT - Anabela axdc-Iduvu-Srhzn disease Uncoded Family History Sister 3 CMT - Anabela jfcd-Tzegk-Zywqt disease Relation Status Comments Brother Father Alive [...] your housing situation today? I have stephen royal 01/27/2021 How many times have you move [...] Subscriber Plan / Payer (Ef fective 2015-Present) Name:Mack Kessler J Member ID:[id number] Relation to Subscriber:Self Name:Mack Kessler Subscriber ID:[id number] Payer ID:[id number] Group ID:Not on file Type:Medicare Address: [facility] [employer] [facility] [address] CARE MEDICARE REPLACEMENT [place] [address] MEDICARE PART A & B [facility] CARE MEDICARE REPLACEMENT [place] [address] MEDICARE PART A & B MEDICARE PART A & B MEDICARE PART A & B [facility] MEDICARE REPLACEMENT MEDICARE PART A & B [facility] MEDICARE REPLACEMENT MEDICARE PART A & B [facility] MED[facility] REPLAC[facility] MEDICARE PART A & B MEDICARE PART A & B [facility] ONE CARE MEDICARE REPLACEMENT Care Teams Electronic Data Interchange Specialist Relationship Specialty Start Date End Date Wolf Willett MD [address] [place] [place] [address] [place] [address] PCP - General Internal Medicine 12/24/22 Additional Source Comments The information contained in this document represents components of the legal health record. It is not the complete legal health record.[facility]
== END 2025-07-23 14:34 | disposition home or self-care (01) ==
LOC: HO.HGI 14:05
PROVIDERS: PCP Internal Medicine; Visit Provider Nurse Practitioner Family
DX: K21.9 Gastro-esophageal reflux disease without esophagitis (principal); R13.10 Dysphagia, unspecified; K58.9 Irritable bowel syndrome, unspecified
CPT/HCPCS: 99213

== ENCOUNTER → 2025-07-23 14:04 | Outpatient (BNVA) | payer OTHER, SELFPAY | PROVIDERS: PCP Internal Medicine; Visit Provider Nurse Practitioner Family | DX: K21.9 Gastro-esophageal reflux disease without esophagitis (principal); R13.10 Dysphagia, unspecified; K58.9 Irritable bowel syndrome, unspecified; Z79.899 Other long term (current) drug therapy | CPT/HCPCS: 99212 ==